=== PATIENT | male | born 1975 | race African-American/Black ===

== ENCOUNTER 2017-08-03 17:37 | Inpatient (IN) | payer SELFPAY ==
[2017-08-03 18:11] LABS: #Eosinphils 0.2 thou/uL (0.0-0.7); #Lymphocytes 1.7 thou/uL (1.20-3.40); #Monocytes 0.3 thou/uL (0.11-0.59); #Neutrophils 2.2 thou/uL (1.40-6.50); %Basophils 0.7 % (0.0-1.0); %Eosinophils 4.3 % (0.0-10.0); %Lymphocytes 38.4 % (21.0-51.0); %Monocytes 7.3 % (0.0-10.0); %Neutrophils 49.3 % (42.0-75.0); Hemoglobin 14.6 g/dL (14.0-18.0); Mean Corpuscular HGB CONC 33.6 g/dL (32.0-36.0); Mean Corpuscular Hemoglobin 30.8 pg (27.0-31.0); Mean Corpuscular Volume 91.6 fl (80.0-94.0); Mean Platelet Volume 7.3 fL (7.4-10.4); Platelet Count 259 thou/uL (130-400); RBC Distribution Width 12.7 % (11.5-14.5); Red Blood Cell (RBC) Count 4.73 mill/uL (4.70-6.10); White Blood Cell (WBC) Count 4.4 thou/uL (4.8-10.8)
[2017-08-03 18:18] LABS: PTT 28.4 SEC (22.9-36.1); Prothrombin Time 13.5 SEC (12.0-14.7)
[2017-08-03 18:38] LABS: Anion Gap 16 mmol/L (10-20); BUN (Urea Nitrogen) 16 mg/dL (8.9-20.6); CK (CPK) 73 U/L (30-200); Calc. Creatinine Clearance 0 mL/min (70-130); Calcium 10.1 mg/dL (7.8-10.44); Carbon Dioxide 24 mmol/L (22-29); Chloride 106 mmol/L (98-107); Estimated GFR-MDRD 70; Glucose 89 mg/dL (70-105); Potassium 4.6 mmol/L (3.5-5.1); Sodium 141 mmol/L (136-145)
--- NOTE | 2017-08-03 20:14 | CT ---
CT OF BRAIN PERFORMED WITHOUT CONTRAST ENHANCEMENT: 08/03/17 HISTORY: Slurred speech, difficulty swallowing. COMPARISON: 08/01/17 study. The ventricular and cisternal system shows some mild prominence for age. Once again, there is an area of what appears to be dystrophic calcification in the left external capsule region and encephalomala óscar plant changer the frontal lobe, these findings appear to be stable. No mass effect. Chronic white m atter changes are seen. Old lacunar infarcts are noted. IMPRESSION: Stable exam. Left sided frontal craniotomy change with encephalomalacia change of the left frontal lo be and some foci of dystrophic calcification over the frontal convexity and in the left basal ganglia external capsule region. POS: [facility]
[2017-08-03] MEDS ORDERED: Ondansetron HCl/PF 4 MG/2 ML Vial IVP PRN ×2 (21:22→23:10)
[2017-08-03] MEDS ORDERED: Ondansetron ODT 4 MG TAB SL PRN (21:22)
[2017-08-03] MEDS ORDERED: Sodium Chloride 0.9% 1,000 ML IV SCH (21:30)
[2017-08-03] MEDS ORDERED: hydrALAZINE 20 MG/ML VIAL SLOW IVP PRN (23:03)
[2017-08-03] MEDS ORDERED: Ondansetron ODT 4 MG TAB PO PRN (23:10)
[2017-08-03] MEDS ORDERED: Acetaminophen 325 MG TAB PO PRN (23:10)
[2017-08-03] MEDS ORDERED: Lorazepam 2 MG/ML VIAL SLOW IVP PRN (23:10)
[2017-08-03] MEDS ORDERED: Senokot 8.6 MG TAB PO PRN (23:10)
[2017-08-03] MEDS ORDERED: Acetaminophen 650 MG Suppository PR PRN (23:10)
--- NOTE | 2017-08-03 23:23 | HP ---
DATE OF ADMISSION: 08/03/2017 PRIMARY CARE PHYSICIAN: [facility]. PRIMARY NEUROLOGIST: At [facility]. CHIEF COMPLAINT: Stroke-like symptoms. HISTORY OF PRESENT ILLNESS: The patient is a 42-year-old -Italian male with seizure disorder and brain tumor, status post surgery, presented to the emergency room with right-sided weakness melanie g with swallowing difficulty that has been worsening over the past few days. It got worse since yest erday. He has been dragging his right foot. No double vision, blurring of vision, facial symmetry, weakness, numbness on the left side reported. He was unable to tolerate oral medications since yeste rday. He missed his Dilantin dose since yesterday. No fever, chills, chest pain, or palpitations re ported. PAST MEDICAL HISTORY: Benign brain tumor that was removed in 1994, treated with chemotherapy and rad iation. PAST SURGICAL HISTORY: Brain tumor excision in 1994. ALLERGIES: The patient is allergic to IODINE. CURRENT HOME MEDICATIONS: Dilantin 100 mg 3 times a day, amlodipine 5 mg daily. SOCIAL HISTORY: The patient currently lives at home with his family. No smoking, alcohol or drug us e. FAMILY HISTORY: Negative for strokes or seizures. REVIEW OF SYSTEMS: The following complete review of systems was negative, unless otherwise mentioned in the HPI or below: Constitutional: Weight loss or gain, ability to conduct usual activities. Skin: Rash, itching. Eyes: Double vision, pain. ENT/Mouth: Nose bleeding, neck stiffness, pain, tenderness. Cardiovascular: Palpitations, dyspnea on exertion, orthopnea. Respiratory: Shortness of breath, wheezing, cough, hemoptysis, fever or night sweats. Gastrointestinal: Poor appetite, abdominal pain, heartburn, nausea, vomiting, constipation, or diarr hea. Genitourinary: Urgency, frequency, dysuria, nocturia. Musculoskeletal: Pain, swelling. Neurologic/Psychiatric: Anxiety, depression. Allergy/Immunologic: Skin rash, bleeding tendency. PHYSICAL EXAMINATION: VITAL SIGNS: In the emergency room showed temperature 98.3, respirations 16, pulse 70, blood pressur e 145/102 with O2 saturation 96% on room air. GENERAL: A 42-year-old male, in no apparent distress. HEENT: Head: Atraumatic, normocephalic. Sclerae are anicteric. Moist mucous membrane, No oral le rafaela. NECK: Supple, no JVD appreciated. No carotid bruit. LUNGS: Clear to auscultation bilaterally. HEART: S1, S2 present. Regular rate and rhythm. No rubs, gallops or murmurs appreciated. ABDOMEN: Soft and nontender. Bowel sounds present. EXTREMITIES: No edema or calf tenderness. NEUROLOGIC: Cranial nerves II-XII were normal on examination. 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 Pupils were 2-3 mm with slow response to light. Power was 5/5 on th e left side. Right side power was 3-4/5. The weakness was more pronounced in the right leg. Sensat ion to touch was diminished. Gait was not assessed due to weakness. Reflexes were equivocal. PSYCHIATRY: The patient is alert, awake, and oriented x3. SKIN: Warm and dry. LYMPH NODES: No palpable lymph nodes in the neck. PERIPHERAL VASCULAR: Radial pulses palpable bilaterally. MUSCULOSKELETAL: No joint swelling or tenderness. LABORATORY FINDINGS: WBC 4.4, hemoglobin 14.6, creatinine 1.34 with BUN 16. Dilantin level 1.9. CT scan of the brain by my review was negative for acute CVA. It showed changes from left-sided fron veronika craniotomy. Chest x-ray by my review from 2 days ago was negative for infiltrate. IMPRESSION AND PLAN: 1. Right-sided weakness with swallowing difficulty in the setting of speech that got worse over the last 2 days. Possibilities include acute cerebrovascular accident, progression of the brain tumor or seizures. The patient will be monitored in the stroke unit. We will give him 1000 mg of Dilantin d ue to subtherapeutic Dilantin level. The patient is unable to tolerate oral medications at this time . We will continue Dilantin maintenance at 100 mg t.i.d. We will also start him on aspirin. We tan l get MRI with and without contrast in the morning. Echocardiogram will be done. Stroke team will b e consulted. Maintenance IV fluids will be started. 2. Seizure disorder. Plan as discussed above. 3. Obesity with a body mass index of 30.1. Lifestyle modification emphasized. 4. Chronic kidney disease, stage 2. 5. Subtherapeutic Dilantin level. Plan as discussed above. 6. Hypertension. His blood pressure is uncontrolled at this time, probably due to lack of taking hi s antihypertensives. We will start him on amlodipine and add p.r.n. antihypertensives. Plan of care was discussed with the patient and the family in detail, they stated understanding.
[2017-08-03] MEDS ORDERED: Aspirin 81 mg Enteric Coated Tablet PO SCH (23:30)
[2017-08-03] MEDS: Sodium Chloride 0.9% 1,000 ML IV SCH (23:41)
[2017-08-04 05:56] LABS: Cardiac Risk 4.1 (Less than 4.5)
[2017-08-04] MEDS: Docusate 100 MG CAP PO SCH ×2 (08:45→19:41)
[2017-08-04] MEDS: Amlodipine 10 MG TAB PO SCH (08:46)
[2017-08-04] MEDS ORDERED: Aspirin 81 mg Enteric Coated Tablet PO SCH (09:00)
--- NOTE | 2017-08-04 10:20 | MRI ---
BRAIN MRI WITH AND WITHOUT CONTRAST: COMPARISON: Reference made to recent head CT from 08/03/2017. FINDINGS: There is a prominent region of multilobular, cystic encephalomalacia of the high left frontal lobe. This results in ex vacuo dilatation of the ventricular system. Additional multifocal gliosis is seen within each cerebral hemisphere, as well as superimposed areas of cavitary lacunar infarctions. The re is inherent T1 hyperintense signal of the left basal ganglia, which correlates to calcium and demo nstrates associated blooming artifact. There is a small focus of restricted diffusion of the right dong radiata, linear in orientation, wh ich is consistent with a small recent infarction. There is prominent paranasal sinus mucosal thicken ing. The skull base flow voids are maintained. 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 POS: [facility]
--- NOTE | 2017-08-04 13:11 | PDOC.PN ---
- Subjective Encounter Start Date: 08/04/17 Encounter Start Time: 08:40 -: old records requested/rev Pt seen and examined, chart reviewed in its entirety. This is my first visit with this aptient. admitted to RUE/RLE weakness, slurred speech. Still present, no headach, no f/c , no n/V/D/c. failed BS swallow eval pending PT/OT/ST eval. ASA, statin ordered. MRI just complete, recent infarct to left dong radiata in distribution consistent with symptoms neuro eval pending no sz activity. all systems reviewed and neg x as above - Objective Resuscitation Status: Resuscitation Status FULL:Full Resuscitation MAR Reviewed: Yes Vital Signs & Weight: Vital Signs (12 hours) Temp Pulse Pulse Pulse Resp BP BP 08/04/17 11:41 98.3 F 80 16 08/04/17 08:46 74 08/04/17 08:00 97.6 F 74 16 08/04/17 07:34 97.6 F 74 16 08/04/17 07:16 75 65 141/100 H 140/97 H 08/04/17 04:35 98.0 F 77 16 BP Pulse Ox 08/04/17 11:41 145/109 H 94 L 08/04/17 08:46 08/04/17 08:00 97 08/04/17 07:34 141/100 H 97 08/04/17 07:16 08/04/17 04:35 143/101 H 97 Weight Admit Weight 203 lb 11.2 oz Weight 203 lb 11.2 oz I&O: 08/03/17 08/04/17 08/05/17 06:59 06:59 06:59 Intake Total 740 Output Total 250 Balance 490 Result Diagrams: 08/03/17 17:58 08/03/17 17:58 Radiology Reviewed by me: Yes EKG Reviewed by me: Yes Phys Exam - Physical Examination Constitutional: NAD HEENT: PERRLA, moist MMs, sclera anicteric, oral pharynx no lesions Neck: no nodes, no JVD, supple, full ROM Respiratory: no wheezing, no rales, no rhonchi, clear to auscultation bilateral Cardiovascular: RRR, no significant murmur, no rub Gastrointestinal: soft, non-tender, no distention, positive bowel sounds Musculoskeletal: pulses present, edema present 3/5 LUE/LLE strength, 2/5 RUE/RLE. CN intact grossly Lymphatic: no nodes Psychiatric: normal affect, A&O x 3 Skin: no rash, normal turgor, cap refill <2 seconds Dx/Plan (1) Acute ischemic stroke Code(s): I63.9 - CEREBRAL INFARCTION, UNSPECIFIED Status: Acute Comment: left internal capsule, by MRI. ASA. Statin. rehab screen (2) Seizure disorder Code(s): G40.909 - EPILEPSY, UNSP, NOT INTRACTABLE, WITHOUT STATUS EPILEPTICUS Status: Chronic Comment: on dilantin, level low, loaded IV, po if ST clears (3) History of brain tumor Code(s): Z87.898 - PERSONAL HISTORY OF OTHER SPECIFIED CONDITIONS Status: Chronic (4) CKD (chronic kidney disease), stage II Code(s): N18.2 - CHRONIC KIDNEY DISEASE, STAGE 2 (MILD) Status: Chronic (5) Hypertension Code(s): I10 - ESSENTIAL (PRIMARY) HYPERTENSION Status: Chronic Qualifiers: Hypertension type: essential hypertension Qualified Code(s): I10 - Essential (primary) hypertension - Plan cont current plan of care, 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
[2017-08-04] MEDS: Sodium Chloride 0.9% 1,000 ML IV SCH (19:40)
[2017-08-04] MEDS: Atorvastatin Calcium 20 MG TAB PO SCH (20:39)
[2017-08-04] MEDS: Enoxaparin Sodium 40 MG/0.4 ML SYRINGE SC SCH (20:43)
[2017-08-04] MEDS ORDERED: Atorvastatin Calcium 10 MG TAB PO SCH (21:00)
--- NOTE | 2017-08-05 01:44 | CON ---
DATE OF CONSULTATION: 08/05/2017 REFERRING PHYSICIAN: Dr. Eliot Kelsey. REASON FOR CONSULTATION: Dysarthria, right-sided weakness. HISTORY OF PRESENT ILLNESS: Mr. Rahman is a pleasant 42-year-old -Sammarinese male who has been consulted for evaluation of dysarthria, dysphagia, and right-sided weakness. History is obtained fro m who was present at bedside. reports that patient has a history of "noncancerous" brain t umor, which was resected in 1994. He had developed right-sided weakness and vision difficulties from that time, he has also had difficulty with most of his speech due to that. He also had developed se izures secondary to his brain tumor and has been on Dilantin. His seizures were very poorly controll ed and they were happening at least 5-7 times per month. Recently, he had seen Dr. Romano at [facility] neurologist who had the changes Dilantin from 100 mg 3 times a day to 300 mg in the mornin g; however, over the past 3-4 days, he has not been able to take his medication. reports that o n Wednesday, he developed sudden onset of slurred speech and difficulty with swallowing. They had gone to outside emergency room on Wednesday evening and was told that this was because of his seizure and was discharged to home on Wednesday afternoon. He had gone again as he was continuing to have slurred spee ch and difficulty with swallowing and again they were told that this was because of his seizures and discharged home. Yesterday, they decided to present to the [place] [facility] as his symptoms were not improving. She also notes that he has been having increasing weakness in his right side; h bryson, she notes that this symptoms have been very increasingly getting worse over the past one year and he has been told that he has mini strokes as the cause for his right-sided weakness. PAST MEDICAL HISTORY: Significant for brain tumor "noncancerous" treated with resection and chemo an d radiation therapy. PAST SURGICAL HISTORY: Significant for brain tumor excision in 1994. CURRENT MEDICATIONS: Include Dilantin 300 mg in the morning once day, amlodipine 5 mg daily. ALLERGIES: Include IODINE. SOCIAL HISTORY: He does not smoke, drink alcohol, or use illicit drugs. FAMILY HISTORY: Noncontributory. REVIEW OF SYSTEMS: As mentioned, which was negative. PHYSICAL EXAMINATION: VITAL SIGNS: Blood pressure 142/104, pulse of 76, temperature 98.2, respirations of 16, O2 sats 98% on room air. GENERAL: Well-developed, well-nourished -Sammarinese male in no apparent distress. RESPIRATORY: Clear to auscultation bilaterally. CARDIOVASCULAR: Regular rate and rhythm. NEUROLOGIC: Mental status: Patient is awake, alert, oriented x3. Speech and language: Dysarthric speech. Cranial nerves: Pupils are 3 mm and reactive. Visual wong are intact on the left side. He is unable to perform finger counting on the right side. Face appears symmetric. Tongue and uvula are midline. Motor exam showed increased tone of right upper and right lower extremity. His streng th in the right upper and right lower extremity is 3/5, strength in the left upper extremity is 4+/5 with a pronator drift on the left upper extremity. Strength in the left lower extremity is 4+/5. Se nsory: Sensation is intact. Deep tendon reflexes, brisk reflexes in both upper and lower extremitie s. Babinski: Plantar responses flexion bilaterally. Coordination intact to [id number] and finger tapping bilaterally. LABORATORY DATA: Reviewed, which included CBC, BMP, lipid profile, and Dilantin level which is signi ficant for WBC of 4.4, creatinine 1.34, total cholesterol of 224, LDL of 148, HDL of 55, triglyceride s of 103, Dilantin of 1.9, otherwise unremarkable. IMAGING STUDIES: MRI brain without contrast was reviewed, which showed acute right dong radiata is chemic infarct. There is also multilobular cystic encephalomalacia in the left frontal lobe as well as a prior cavitary lacunar infarctions in both sides. IMPRESSION: 1. Acute ischemic infarct involving the right dong radiata. 2. Malignant hypertension. 3. Prior brain tumor resection. Mr. Rahman is a pleasant 42-year-old -Sammarinese male presented with the worsening dysarthria an d dysphagia. He is found to have acute right dong radiata ischemic infarct. This is likely second eugenio to poorly controlled blood pressure and cholesterol. At this time, I will recommend obtaining ec hocardiogram as well as echocardiogram as well as MR angiogram of the head and neck. I will recommen d starting him on aspirin 325 mg daily for secondary stroke prevention. I will recommend consulting PT, OT, speech therapy. Once the workup is completed, he is okay to be [facility] Thank you for your consultation.
[2017-08-05 04:31] LABS: #Eosinphils 0.2 thou/uL (0.0-0.7); #Lymphocytes 1.4 thou/uL (1.20-3.40); #Monocytes 0.3 thou/uL (0.11-0.59); #Neutrophils 1.5 thou/uL (1.40-6.50); %Basophils 0.8 % (0.0-1.0); %Lymphocytes 40.7 % (21.0-51.0); %Monocytes 9.8 % (0.0-10.0); %Neutrophils 43.7 % (42.0-75.0); Hemoglobin 12.7 g/dL (14.0-18.0); Mean Corpuscular HGB CONC 33.9 g/dL (32.0-36.0); Mean Corpuscular Volume 91.6 fl (80.0-94.0); Mean Platelet Volume 7.2 fL (7.4-10.4); Platelet Count 212 thou/uL (130-400); RBC Distribution Width 12.4 % (11.5-14.5); Red Blood Cell (RBC) Count 4.09 mill/uL (4.70-6.10); White Blood Cell (WBC) Count 3.4 thou/uL (4.8-10.8)
[2017-08-05 05:04] LABS: Anion Gap 7 mmol/L (10-20); BUN (Urea Nitrogen) 12 mg/dL (8.9-20.6); Calc. Creatinine Clearance 117 mL/min (70-130); Carbon Dioxide 27 mmol/L (22-29); Chloride 107 mmol/L (98-107); Estimated GFR-MDRD Greater than 90; Glucose 95 mg/dL (70-105); Magnesium 2.3 mg/dL (1.6-2.6); Potassium 3.7 mmol/L (3.5-5.1); Sodium 137 mmol/L (136-145)
[2017-08-05] MEDS: Amlodipine 10 MG TAB PO SCH (10:30)
[2017-08-05] MEDS: Aspirin 325 MG TAB PO SCH (10:30)
[2017-08-05] MEDS: Docusate 100 MG CAP PO SCH (11:43)
--- NOTE | 2017-08-05 14:46 | PDOC.PN ---
- Subjective Encounter Start Date: 08/05/17 Encounter Start Time: 08:30 Pt seen, at bedside and updated. pt uninsured, so plan is to go home with [facility] on james if possible. Case Management working on options. Seen by neuro, confirmed acute CVA. recommended statin, full aspirin daily, MRA and echo. MRA and echo, ASA 325 ordered, statin already started yedsterday No significant cange form yesterday. Speech recommended St plus soft mech diet and nectar thick liquids. Pt deneis F/C, no N/V/D/C, no new deficits All systems reviewed and neg except as above - Objective Resuscitation Status: Resuscitation Status FULL:Full Resuscitation MAR Reviewed: Yes Vital Signs & Weight: Vital Signs (12 hours) Temp Pulse Pulse Pulse Resp BP BP 08/05/17 13:15 70 65 146/111 H 130/84 08/05/17 11:41 97.9 F 69 16 08/05/17 10:30 80 08/05/17 08:00 98.3 F 80 16 08/05/17 07:38 98.3 F 80 16 08/05/17 04:00 98.4 F 77 16 BP Pulse Ox 08/05/17 13:15 08/05/17 11:41 145/107 H 97 08/05/17 10:30 08/05/17 08:00 97 08/05/17 07:38 139/92 H 97 08/05/17 04:00 130/97 H 94 L Weight Admit Weight 203 lb 11.2 oz Weight 203 lb 11.2 oz I&O: 08/04/17 08/05/17 08/06/17 06:59 06:59 06:59 Intake Total 740 1260 Output Total 250 Balance 490 1260 Result Diagrams: 08/05/17 04:17 08/05/17 04:17 Radiology Reviewed by me: Yes EKG Reviewed by me: Yes Phys Exam - Physical Examination Constitutional: NAD HEENT: PERRLA, moist MMs, sclera anicteric, oral pharynx no lesions Neck: no nodes, no JVD, supple, full ROM Respiratory: no wheezing, no rales, no rhonchi, clear to auscultation bilateral Cardiovascular: RRR, no significant murmur, no rub Gastrointestinal: soft, non-tender, no distention, positive bowel sounds Musculoskeletal: no edema, pulses present R>L weakness, still dysarthric, no facial droop. Lymphatic: no nodes Psychiatric: normal affect, A&O x 3 Skin: no rash, normal turgor, cap refill <2 seconds Dx/Plan (1) Acute ischemic stroke Code(s): I63.9 - CEREBRAL INFARCTION, UNSPECIFIED Status: Acute Comment: right internal capsule, by MRI. ASA. Statin. home with C when arranged (2) Seizure disorder Code(s): G40.909 - EPILEPSY, UNSP, NOT INTRACTABLE, WITHOUT STATUS EPILEPTICUS Status: Chronic Comment: on dilantin, level low, loaded IV, po, AM repeat level (3) History of brain tumor Code(s): Z87.898 - PERSONAL HISTORY OF OTHER SPECIFIED CONDITIONS Status: Chronic (4) CKD (chronic kidney disease), stage II Code(s): N18.2 - CHRONIC KIDNEY DISEASE, STAGE 2 (MILD) Status: Chronic (5) Hypertension Code(s): I10 - ESSENTIAL (PRIMARY) HYPERTENSION Status: Chronic Qualifiers: Hypertension type: essential hypertension Qualified Code(s): I10 - Essential (primary) hypertension - Plan cont current plan of care, plan discussed w/ family, 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
--- NOTE | 2017-08-05 16:03 | MRI ---
MRA OF THE BRAIN WITHOUT CONTRAST: COMPARISON: 08/04/17. HISTORY: Acute CVA. TECHNIQUE: An MRA of the head was performed using 3D [id number] images. Three-D rotational reformats were p erformed. The bilateral intracranial internal carotid arteries are normal in caliber. These branch into normal -appearing anterior and middle cerebral arteries. There is no evidence of focal stenosis, occlusion, or aneurysmal dilatation in the anterior circulation. Both vertebral arteries form a normal-appearing basilar artery. Posterior cerebral arteries and cere bellar arteries are patent. There is no evidence of focal stenosis, occlusion, or aneurysmal dilatat ion in the posterior circulation. IMPRESSION: No significant intracranial mass or abnormality. POS: [facility]
--- NOTE | 2017-08-05 16:05 | MRI ---
MRA NECK NONCOTNRAST: HISTORY: CVA. Difficulty swallowing. FINDINGS: Motion artifact limits detail on some sequences. Good arterial flow is demonstrated within each booth tid artery an each vertebral artery along the course of the neck. Upper thorax is incompletely inclu ded. Each internal carotid artery origin is patent. No significant narrowing. IMPRESSION: No evidence of arterial stenosis. POS: [facility]
[2017-08-05] MEDS: Atorvastatin Calcium 20 MG TAB PO SCH (21:56)
[2017-08-05] MEDS: Enoxaparin Sodium 40 MG/0.4 ML SYRINGE SC SCH (21:57)
[2017-08-06 08:00] VITALS: TEMP 97.9
[2017-08-06] MEDS: Docusate 100 MG CAP PO SCH ×2 (08:48→09:04)
[2017-08-06] MEDS: Amlodipine 10 MG TAB PO SCH (09:03)
[2017-08-06] MEDS: Aspirin 325 MG TAB PO SCH (09:03)
[2017-08-06 13:21] VITALS: BP 158/118
--- NOTE | 2017-08-06 17:36 | DIS ---
DATE OF ADMISSION: 08/03/2017 DATE OF DISCHARGE: 08/06/2017 PRIMARY CARE PHYSICIAN: Maximus Araiza. DISCHARGE DIAGNOSES: 1. Acute ischemic right internal capsule stroke. 2. Hyperlipidemia. 3. History of seizure disorder. 4. History of brain tumor, status post resection. 5. Dysarthria. 6. Dysphagia. CONSULTATIONS: 1. Neurology, Dr. Qian Lira. 2. PT, OT and ST. PROCEDURES: 1. A 2D echocardiogram 08/05/2017 showed an EF of 60-65% with some LVH. Normal RV size and function , trace MR and mild TR and PI. 2. Brain MRA on 08/05/2017. No significant intracranial mass or abnormality. 3. Head and neck on MRI/MRA showed no evidence of arterial stenosis. 4. Brain MRI on 08/04/2017 that showed small recent infarction involving the right dong radiata kaba perimposed with extensive chronic ischemic disease. HOSPITAL COURSE: Mr. Judge is a 42-year-old male with history of brain tumor, stat us post resection and resultant seizure disorder who presents to the emergency department on day of a dmission with increased right-sided weakness and stroke-like symptoms. Workup in the ER including CT scan was largely unremarkable, but the exam did show new right greater than left weakness, dysarthria and trouble swallowing. A Dilantin level was subtherapeutic. He was subsequently admitted to the stroke unit for workup. HOSPITAL COURSE: The patient was seen and examined by Dr. Eliot Kelsey and placed in inpatient status . Brain MRI was ordered. Stroke team was activated. Neurology was consulted. MRI returned the next day with acute right dong radiata stroke and Neurology recommended full dose aspirin and antihyperlipidemic agents. His fasting lipid profile showed elevated total cholesterol, but is otherwise fairly normal. PT, OT and ST did evaluate the patient. He was recommended to have a nectar thick diet and a soft mechanical diet. He worked with PT and OT from 08/04/2017 to 08/06/19 18. Due to lack of insurance, arrangement was made for him to follow up with [facility] and to h ave 2-3 visits with home health care for teaching of rehabilitation exercises. Today, the patient's arrangements were made and he was stable for discharge with outpatient followup. Physical exam, the patient was seen and examined on the day of discharge. Discharge plan and dispo sition were discussed face to face with the patient and the at the bedside including plan for re habilitation with PT, ST and OT. DISCHARGE MEDICATIONS: 1. Amlodipine 5 mg daily. 2. Aspirin 325 mg daily. New prescription sent. 3. Atorvastatin 20 mg p.o. at bedtime. Prescription sent to [facility] for case management to arrange f illing and no charge for him. 4. Dilantin 100 mg p.o. t.i.d or 300 mg daily per patient choice. DISCHARGE CONDITION: Stable. DISPOSITION: Discharged to home with a temporary home health care for teaching of rehabilitation [facility]. DISCHARGE ACTIVITY: As tolerated. DISCHARGE DIET: Heart healthy recommended with a soft mechanical texture and nectar thick liquids. FOLLOWUP APPOINTMENTS: Primary care physician, his establish care either Wednesday at 11:00 a.m. or Wed after 2:[address] [facility]. Lira in 2-3 weeks. Regular neurologist at [place] [facility] [place] as scheduled.
== END 2017-08-06 13:49 | disposition home health service (06) | DRG 65 ==
LOC: ERS 17:37 → 2SE 20:53
PROVIDERS: ADMIT Emergency Medicine; ATTEND Emergency Medicine
DX: I63.9 Cerebral infarction, unspecified (principal); G81.91 Hemiplegia, unspecified affecting right dominant side; G40.909 Epilepsy, unspecified, not intractable, without status epilepticus; R13.10 Dysphagia, unspecified; N18.2 Chronic kidney disease, stage 2 (mild); E78.5 Hyperlipidemia, unspecified; I12.9 Hypertensive chronic kidney disease with stage 1 through stage 4 chronic kidney disease, or unspecified chronic kidney disease
CPT/HCPCS: 36415; 70450; 70544; 70547; 70553; 80048; 80061; 80185; 82550; 83735; 85025; 85610; 85730; 93005; 93306; G8978-GP-CL; G8979-GP-CJ; G8987-GO-CJ; G8988-GO-CH; G8996-GN-CJ; G8997-GN-CJ; J1650; J7050; Q2009

== ENCOUNTER 2017-08-11 18:52 | Emergency (ER) | payer SELFPAY ==
--- NOTE | 2017-08-11 19:48 | CT ---
CT BRAIN WITHOUT CONTRAST: 08/11/17 HISTORY: Altered mental status. COMPARISON: CT brain 08/03/17. FINDINGS: Calcific density left basal ganglia is unchanged. Gliosis and cystic encephalomalacia of the left fro ntal lobe is unchanged. Old right caudate head infarction. No acute hemorrhage. No new large volume t erritorial infarcts appreciated. Prior craniotomy changes. IMPRESSION: Unchanged exam without acute intracranial abnormality. POS: [facility]
[2017-08-11 20:31] LABS: #Eosinphils 0.2 thou/uL (0.0-0.7); #Lymphocytes 1.4 thou/uL (1.20-3.40); #Monocytes 0.3 thou/uL (0.11-0.59); #Neutrophils 2.1 thou/uL (1.40-6.50); %Basophils 0.7 % (0.0-1.0); %Eosinophils 4.3 % (0.0-10.0); %Lymphocytes 35.5 % (21.0-51.0); %Monocytes 7.1 % (0.0-10.0); %Neutrophils 52.4 % (42.0-75.0); Hemoglobin 12.9 g/dL (14.0-18.0); Mean Corpuscular HGB CONC 34.6 g/dL (32.0-36.0); Mean Corpuscular Hemoglobin 30.9 pg (27.0-31.0); Mean Corpuscular Volume 89.4 fl (80.0-94.0); Mean Platelet Volume 6.8 fL (7.4-10.4); Platelet Count 237 thou/uL (130-400); RBC Distribution Width 12.1 % (11.5-14.5); Red Blood Cell (RBC) Count 4.16 mill/uL (4.70-6.10)
[2017-08-11 20:51] LABS: ALT (SGPT) 114 U/L (8-55); AST (SGOT) 51 U/L (5-34); Albumin 4.2 g/dL (3.5-5.0); Alkaline Phosphatase 96 U/L (40-150); Anion Gap 12 mmol/L (10-20); BUN (Urea Nitrogen) 14 mg/dL (8.9-20.6); Bilirubin, Total 0.2 mg/dL (0.2-1.2); Calc. Creatinine Clearance 0 mL/min (70-130); Calcium 9.3 mg/dL (7.8-10.44); Carbon Dioxide 24 mmol/L (22-29); Chloride 104 mmol/L (98-107); Dilantin 3.7 ug/mL (10.0-20.0); Estimated GFR-MDRD 78; Globulin 3.6 g/dL (2.4-3.5); Glucose 103 mg/dL (70-105); Potassium 3.8 mmol/L (3.5-5.1); Protein, Total 7.8 g/dL (6.0-8.3); Sodium 136 mmol/L (136-145)
--- NOTE | 2017-08-14 14:47 | EKG ---
Test Reason : Blood Pressure : / mmHG Vent. Rate : 085 BPM Atrial Rate : 085 BPM P-R Int : 170 ms QRS Dur : 100 ms QT Int : 382 ms P-R-T Axes : 040 -11 -05 degrees QTc Int : 454 ms Normal sinus rhythm Possible Left atrial enlargement Left ventricular hypertrophy Cannot rule out Septal infarct , age undetermined Abnormal ECG Confirmed by FRANCESCA BA M.D. ([id number]), editor farm journal SIM MARRUFO ([id number]) on 08/14/2017 2:46:49 PM Referred By: Confirmed By:FRANCESCA BA M.D.
== END 2017-08-11 21:50 | disposition home or self-care (01) ==
LOC: ERS 18:52
DX: R56.9 Unspecified convulsions (principal); I10 Essential (primary) hypertension; Z79.899 Other long term (current) drug therapy; Z79.82 Long term (current) use of aspirin
CPT/HCPCS: 36415; 36416; 70450; 80053; 80185; 85025; 93005

== ENCOUNTER 2017-08-24 16:35 | Observation (INO) | payer OTHER, SELFPAY ==
[2017-08-24 17:17] LABS: #Eosinphils 0.2 thou/uL (0.0-0.7); #Lymphocytes 1.3 thou/uL (1.20-3.40); #Monocytes 0.3 thou/uL (0.11-0.59); #Neutrophils 1.3 thou/uL (1.40-6.50); %Basophils 0.8 % (0.0-1.0); %Lymphocytes 42.4 % (21.0-51.0); %Monocytes 8.2 % (0.0-10.0); %Neutrophils 42.6 % (42.0-75.0); Hemoglobin 11.7 g/dL (14.0-18.0); Mean Corpuscular HGB CONC 34.2 g/dL (32.0-36.0); Mean Corpuscular Hemoglobin 30.6 pg (27.0-31.0); Mean Corpuscular Volume 89.4 fl (80.0-94.0); Mean Platelet Volume 6.5 fL (7.4-10.4); Platelet Count 204 thou/uL (130-400); RBC Distribution Width 11.7 % (11.5-14.5); Red Blood Cell (RBC) Count 3.83 mill/uL (4.70-6.10); White Blood Cell (WBC) Count 3.2 thou/uL (4.8-10.8)
[2017-08-24 17:38] LABS: ALT (SGPT) 44 U/L (8-55); AST (SGOT) 19 U/L (5-34); Albumin 4.1 g/dL (3.5-5.0); Alkaline Phosphatase 112 U/L (40-150); Anion Gap 10 mmol/L (10-20); BUN (Urea Nitrogen) 11 mg/dL (8.9-20.6); Bilirubin, Total 0.2 mg/dL (0.2-1.2); Calc. Creatinine Clearance 0 mL/min (70-130); Calcium 9.3 mg/dL (7.8-10.44); Carbon Dioxide 28 mmol/L (22-29); Chloride 105 mmol/L (98-107); Estimated GFR-MDRD 69; Globulin 3.4 g/dL (2.4-3.5); Glucose 90 mg/dL (70-105); Potassium 3.7 mmol/L (3.5-5.1); Protein, Total 7.5 g/dL (6.0-8.3); Sodium 139 mmol/L (136-145)
[2017-08-24 17:45] LABS: CKMB 0.1 ng/mL (0-6.6); Troponin I Less than 0.010 ng/mL (< 0.028)
--- NOTE | 2017-08-24 19:43 | CT ---
CT OF THE BRAIN WITHOUT CONTRAST 08/24/17 COMPARISON: 08/11/17 HISTORY: Unsteady gait. History of seizure-like activity. Patient had history of stroke in July and slurred spe ech. TECHNIQUE: Multiple contiguous axial images were obtained in a CT of the brain without contrast. FINDINGS: There are scattered hypodensities in the subcortical and periventricular white matter likely secondar y to small vessel ischemic disease. There are stable calcifications in the left basal ganglia. Enceph alomalacia is seen in the left frontal lobe. There is no evidence of hydrocephalus, intracranial hemo rrhage, or extra-axial fluid collection. The visualized paranasal sinuses and mastoid air cells are well aerated. There are postsurgical pedro es in the left frontal calvarium. IMPRESSION: No evidence of acute intracranial abnormality. POS: [facility]
[2017-08-24 22:56] VITALS: BMI 31.1
[2017-08-25] MEDS ORDERED: Acetaminophen 325 MG TAB PO PRN (01:03)
[2017-08-25] MEDS ORDERED: Guaifenesin DM 100-10/5 ML UDCUP PO PRN (01:03)
[2017-08-25] MEDS ORDERED: Lorazepam 2 MG/ML VIAL SLOW IVP PRN (01:03)
--- NOTE | 2017-08-25 03:40 | HP ---
REASON FOR ADMISSION: TIA. HISTORY OF PRESENTING ILLNESS: Please note majority of this history is obtained by talking to patient's as the patient does not recall what happened to him. Per who is here at bedside, mentions that from last 2 days he has not been able to balance himself and he tries to slide off when he is sitting in a chair, either to the left or to the front. He has had some slurred speech yesterday evening. He also had some trouble swallowing and was pocketing food at home. He has home health with PT come home and they have been watching that his right side is still weak and he tries to drag his right side while ambulating. He occasionally uses walker, but mostly goes without it. Currently, he is moving all 4 extremities. No complaints of any specific weakness at present. No chest pain or palpitation. He is awake and is responding well to questions. PAST MEDICAL AND SURGICAL HISTORY: History of left frontal lobe mass removed in 02/1995, which was benign. Has had a lacunar infarct in the right dong radiata on 08/03/2017. Hypertension, dyslipidemia, and seizure disorder. CURRENT MEDICATIONS: Dilantin 200 mg twice daily, Norvasc 5 mg daily, aspirin 325 mg daily, atorvastatin 20 mg at bedtime. ALLERGIES: IODINE. PERSONAL HISTORY: Does not abuse alcohol or drugs. No history of smoking. FAMILY HISTORY: Mother in her 70s. She has had history of stroke and breast cancer. Code status is FULL. Power of litigation attorney associate is his . REVIEW OF SYSTEMS: The following complete review of systems was negative, unless otherwise mentioned in the HPI or below: Constitutional: Weight loss or gain, ability to conduct usual activities. Skin: Rash, itching. Eyes: Double vision, pain. ENT/Mouth: Nose bleeding, neck stiffness, pain, tenderness. Cardiovascular: Palpitations, dyspnea on exertion, orthopnea. Respiratory: Shortness of breath, wheezing, cough, hemoptysis, fever or night sweats. Gastrointestinal: Poor appetite, abdominal pain, heartburn, nausea, vomiting, constipation, or diarrhea. Genitourinary: Urgency, frequency, dysuria, nocturia. Musculoskeletal: Pain, swelling. Neurologic/Psychiatric: Anxiety, depression. Allergy/Immunologic: Skin rash, bleeding tendency. PHYSICAL EXAMINATION: GENERAL: The patient is a 42-year-old male, who is currently not in any acute distress. VITAL SIGNS: Blood pressure 114/70, pulse 78 per minute, respiratory rate 18 per minute, temperature 98.7 degrees Fahrenheit, saturating 94% on room air. NECK: Supple, no elevated JVD. HEENT: Eyes: Extraocular muscles intact. Pupils are reacting to light. Oral cavity, mucous membranes are moist. No exudates or congestion. CARDIOVASCULAR SYSTEM: S1, S2 heard. Regular rhythm. RESPIRATORY SYSTEM: Air entry 1+ bilateral. No rales or rhonchi. ABDOMEN: Soft, bowel sounds heard. No tenderness, rigidity or guarding. EXTREMITIES: No peripheral edema or calf tenderness. VASCULAR SYSTEM: Peripheral pulses 1+ bilateral, no ischemic ulcerations or gangrene. CENTRAL NERVOUS SYSTEM: Cranial nerves are grossly intact. Motor system strength: Right upper and lower extremity strength is 3-4/5, left upper and lower extremity is 5/5, reflexes are 2+ bilateral. Babinski is downgoing. Cranial nerves are grossly intact. Cerebellar signs could not be elicited. Gait is not tested. PSYCHIATRIC SYSTEM: The patient's mood is euthymic. No hallucinations or delusions. LABORATORY AND X-RAY FINDINGS: EKG done shows sinus rhythm at 60 beats per minute on telemetry monitoring. White count of 3.2, H&H 11 and 34, platelet count 204 with 42% neutrophils. Electrolytes stable. BUN 11, creatinine 1.3, glucose 90. Liver enzymes within normal limits. Albumin is 4.1. Phenytoin level is 9.8. Cardiac enzymes x1 is negative. CT brain done shows no acute intracranial abnormality. CLINICAL IMPRESSION AND PLAN: The patient will be under observation on the stroke unit to rule out transient ischemic attack. The patient has complicated neurologic history with prior mass removed in the left frontal lobe with encephalomalacia seen on the CAT scan. He has also had a recent lacunar infarct in the right dong radiata. His strength on the right side is around 3 -4/5. We will obtain MRI of the brain without contrast to better delineate the structures. Also, I am told Neurology consultation is not available on the , that is after the patient is being admitted to the stroke floor. In view of this, we will follow transient ischemic attack evidence based stroke protocol with a NIH q. shift and PT, OT, and speech evaluations. He will also continue on full dose aspirin, Norvasc, Lipitor, and recently increased dose of Dilantin as well. We will continue to closely monitor him on the stroke unit. The patient likely will need outpatient appointment with Dr. Qian Lira to be scheduled. Also, the patient has seen one time Dr. Romano in the past. So, he needs to see either one of them in the outpatient setting as neurologist is not available today. Code status was discussed with patient and and he is a FULL CODE. Please note I have seen and examined patient [facility]
[2017-08-25 06:07] LABS: #Eosinphils 0.2 thou/uL (0.0-0.7); #Lymphocytes 1.7 thou/uL (1.20-3.40); #Monocytes 0.4 thou/uL (0.11-0.59); #Neutrophils 1.4 thou/uL (1.40-6.50); %Basophils 0.4 % (0.0-1.0); %Eosinophils 4.7 % (0.0-10.0); %Lymphocytes 46.1 % (21.0-51.0); %Monocytes 10.7 % (0.0-10.0); %Neutrophils 38.1 % (42.0-75.0); Mean Corpuscular HGB CONC 34.2 g/dL (32.0-36.0); Mean Corpuscular Hemoglobin 30.5 pg (27.0-31.0); Mean Corpuscular Volume 89.2 fl (80.0-94.0); Mean Platelet Volume 6.8 fL (7.4-10.4); Platelet Count 212 thou/uL (130-400); RBC Distribution Width 11.6 % (11.5-14.5); Red Blood Cell (RBC) Count 3.94 mill/uL (4.70-6.10); White Blood Cell (WBC) Count 3.6 thou/uL (4.8-10.8)
[2017-08-25 06:16] LABS: Anion Gap 10 mmol/L (10-20); BUN (Urea Nitrogen) 10 mg/dL (8.9-20.6); Calc. Creatinine Clearance 111 mL/min (70-130); Calcium 9.4 mg/dL (7.8-10.44); Carbon Dioxide 29 mmol/L (22-29); Cardiac Risk 3.5 (Less than 4.5); Chloride 105 mmol/L (98-107); Cholesterol 133 mg/dl (< 200 Desired); Estimated GFR-MDRD 83; Glucose 83 mg/dL (70-105); HDL Cholesterol 38 mg/dL (>60 Neg Risk); LDL Cholesterol, Calculated 81 mg/dL; Potassium 3.8 mmol/L (3.5-5.1); Sodium 140 mmol/L (136-145); Triglycerides 70 mg/dL (Less than 150)
[2017-08-25] MEDS: Docusate 100 MG CAP PO SCH ×2 (08:51→08:54)
[2017-08-25] MEDS ORDERED: Amlodipine 5 MG TAB PO SCH (09:00)
[2017-08-25] MEDS ORDERED: Enoxaparin Sodium 40 MG/0.4 ML SYRINGE SC SCH (09:00)
[2017-08-25] MEDS ORDERED: Famotidine 20 MG TAB PO SCH (09:00)
[2017-08-25] MEDS ORDERED: Aspirin 325 mg Enteric Coated Tablet PO SCH (09:00)
--- NOTE | 2017-08-25 10:34 | MRI ---
MRI BRAIN WITHOUT CONTRAST: HISTORY: Unsteady gait. Seizure-like activity. Previous stroke. COMPARISON: None. CORRELATION: Head CT from 08/11/2017 and 08/24/2017. TECHNIQUE: A brain MRI is performed without intravenous Gadolinium administration. Multisequential, multiplanar imaging is performed. FINDINGS: There is hypointensity in the axial gradient echo sequence, corresponding to the areas of calcificati on noted on the recent CT. There are T2 and FLAIR hyperintensities, compatible with gliotic and mickey cic changes involving the left frontal lobe and the left deep leon matter structures. There are asso ciated T2 and FLAIR hyperintensities involving the right lentiform nucleus and the right caudate lobe , compatible with areas of hypoattenuation, suggesting changes from remote lacunar infarcts. There i s a small focus of T2 and FLAIR hyperintensity, which may represent a small periventricular lacunar i nfarction. Similar findings are noted in the left centrum semiovale. With the exception of the left frontal lobe, cortical leon white matter differentiation is preserved. There is ex vacuo dilatation of the frontal horn of the left lateral ventricle. Central arterial flow voids are maintained. Absent restricted diffusion. The calvarium has a normal marrow signal intensity. The midline brain parenchymal structures are unr emarkable. There is bilateral maxillary sinus mucosal disease. IMPRESSION: Chronic changes, as described above. No acute infarct. No restricted diffusion. POS: INOECNCIO
[2017-08-25 10:48] LABS: Amphetamine Not Detected (NotDetected); Barbiturates Screen Detected (NotDetected); Benzodiazepine Screen Not Detected (NotDetected); Cocaine Metabolite Screen Not Detected (NotDetected); Medtox Control Line Valid? VALID (VALID); Medtox Reader # READER 4; Methadone Not Detected (NotDetected); Methamphetamine Not Detected (NotDetected); Opiate Screen Not Detected (NotDetected); Oxycodone Screen Not Detected (NotDetected); Phencyclidine (PCP) Not Detected (NotDetected); THC/Cannabinoid Screen Not Detected (NotDetected); Tricyclic Screen Not Detected (NotDetected)
[2017-08-25 11:58] VITALS: TEMP 98.3
[2017-08-25 12:53] VITALS: BP 156/121
--- NOTE | 2017-08-25 19:38 | DIS ---
DATE OF ADMISSION: 08/24/2017 DATE OF DISCHARGE: 08/25/2017 DISCHARGE DIAGNOSES: 1. Unstable balance. 2. History of seizures. 3. Status post left frontal mass removal. 4. Hypertension. HOSPITAL COURSE: While the patient was in hospital, due to the decreased balance, patient was admitt ed to the Neuro unit. Imaging was done, which included an MRI. MRI did not show any acute infarct o r any abnormalities. After evaluating the patient this morning, I do not even believe the patient ev en had a TIA stroke. Patient states that he feels significantly better this morning without re quiring any intervention overnight. Due to the patient being in stable condition without any further intervention required at this time and the patient being at his baseline, I was comfortable discharg ing the patient home. The patient will follow up with Neurology as an outpatient as well as continue with home health as well as PT, OT outpatient. DISCHARGE CONDITION: Much improved from when he first came in. DISCHARGE ACTIVITY: As tolerated. DISCHARGE DIET: Heart healthy diet. DISCHARGE MEDICATIONS: Please see home medication list that was reconciled. FOLLOWUP APPOINTMENTS: The patient will follow up with primary care physician in 1 week as well as n eurologist in 1 week. DISCHARGE PLAN: Discharge plan was greater than 30 minutes.
[2017-08-25] MEDS ORDERED: Atorvastatin Calcium 20 MG TAB PO SCH (21:00)
== END 2017-08-25 15:55 | disposition home health service (06) ==
LOC: ERS 16:35 → 2SE 18:09
PROVIDERS: ADMIT Emergency Medicine; ATTEND Emergency Medicine
DX: R26.81 Unsteadiness on feet (principal); R47.81 Slurred speech; I10 Essential (primary) hypertension; E78.5 Hyperlipidemia, unspecified; G40.909 Epilepsy, unspecified, not intractable, without status epilepticus; Z86.011 Personal history of benign neoplasm of the brain; Z79.899 Other long term (current) drug therapy; Z79.82 Long term (current) use of aspirin; Z91.041 Radiographic dye allergy status
CPT/HCPCS: 36415; 36416; 70450; 70551; 80048; 80053; 80061; 80185; 80306; 82553; 84443; 84484; 85025; 93005; 96372; G0378; G8978-GP-CK; G8979-GP-CJ; G8987-GO-CJ; G8988-GO-CH; G8996-GN-CK; G8997-GN-CK; J1650

== ENCOUNTER 2017-10-31 13:32 | Inpatient (IN) | payer SELFPAY ==
[2017-10-31 14:46] LABS: #Basophils 0.1 thou/uL (0.0-0.2); #Eosinphils 0.2 thou/uL (0.0-0.7); #Lymphocytes 1.2 thou/uL (1.20-3.40); #Monocytes 0.2 thou/uL (0.11-0.59); #Neutrophils 1.5 thou/uL (1.40-6.50); %Basophils 1.7 % (0.0-1.0); %Eosinophils 5.8 % (0.0-10.0); %Lymphocytes 38.9 % (21.0-51.0); %Neutrophils 46.6 % (42.0-75.0); Hemoglobin 12.1 g/dL (14.0-18.0); Mean Corpuscular HGB CONC 34.8 g/dL (32.0-36.0); Mean Corpuscular Hemoglobin 31.2 pg (27.0-31.0); Mean Corpuscular Volume 89.5 fL (78.0-98.0); Mean Platelet Volume 6.5 fL (7.4-10.4); Platelet Count 234 thou/uL (130-400); RBC Distribution Width 13.4 % (11.5-14.5); Red Blood Cell (RBC) Count 3.88 mill/uL (4.70-6.10); White Blood Cell (WBC) Count 3.2 thou/uL (4.8-10.8)
--- NOTE | 2017-10-31 14:48 | RAD ---
RADIOGRAPH CHEST 1 VIEW: HISTORY: 42-year-old male with altered mental status. FINDINGS: There is cardiomegaly. There is no evidence of air space density, pulmonary edema, or pneumothorax. T he lateral costophrenic angles are sharp. IMPRESSION: 1. No acute pulmonary findings. 2. Cardiomegaly without congestive heart failure. aroldo [] POS: INOCENCIO
[2017-10-31 14:59] LABS: Bilirubin Negative (Negative); Blood, Urine Negative (Negative); Clarity CLEAR (Clear); Glucose, Urine (Dipstick) Negative (Negative); Leukocyte Negative (Negative); Nitrite Negative (Negative); Protein, Urine (Dipstick) Negative (Neg-Trace); Specific Gravity, Urine 1.018 (1.002-1.036); Urobilinogen 0.2 mg/dL (0.2-1.0)
[2017-10-31 15:00] LABS: Acetaminophen Less than 6.0 mcg/mL (10.0-30.0); Alcohol Less than 10 mg/dL (Less than 10); Salicylate Less than 8.0 mg/dL (15.0-30.0)
[2017-10-31 15:01] LABS: ALT (SGPT) 64 U/L (8-55); AST (SGOT) 28 U/L (5-34); Albumin 4.1 g/dL (3.5-5.0); Alkaline Phosphatase 89 U/L (40-150); Anion Gap 14 mmol/L (10-20); BUN (Urea Nitrogen) 10 mg/dL (8.9-20.6); Bilirubin, Total 0.3 mg/dL (0.2-1.2); CK (CPK) 64 U/L (30-200); Calc. Creatinine Clearance 0 mL/min (70-130); Calcium 9.1 mg/dL (7.8-10.44); Carbon Dioxide 22 mmol/L (22-29); Chloride 105 mmol/L (98-107); Estimated GFR-MDRD Greater than 90; Globulin 3.2 g/dL (2.4-3.5); Glucose 89 mg/dL (70-105); Lipase 21 U/L (8-78); Protein, Total 7.3 g/dL (6.0-8.3); Sodium 137 mmol/L (136-145)
[2017-10-31 15:20] LABS: Amphetamine Not Detected (NotDetected); Barbiturates Screen Detected (NotDetected); Benzodiazepine Screen Not Detected (NotDetected); Cocaine Metabolite Screen Not Detected (NotDetected); Medtox Control Line Valid? VALID (VALID); Medtox Reader # READER 4; Methadone Not Detected (NotDetected); Methamphetamine Not Detected (NotDetected); Opiate Screen Not Detected (NotDetected); Oxycodone Screen Not Detected (NotDetected); Phencyclidine (PCP) Not Detected (NotDetected); THC/Cannabinoid Screen Not Detected (NotDetected); Tricyclic Screen Not Detected (NotDetected)
--- NOTE | 2017-10-31 15:43 | CT ---
CT BRAIN NONCONTRAST: DATE: 10/31/17 TIME: 1454 hours HISTORY: 42-year-old male with altered mental status, confusion, right-sided weakness, dysphagia, and dysarthr ia. History of tumor removal, stroke, and seizures. COMPARISON: CT of 10/26/17. FINDINGS: Left frontal craniotomy changes. Deep to that, there is a left anterior upper frontal intra-axial cys tic cavity measuring 3.5 x 2.5 cm, presumably the site of tumor removal. Ex vacuo dilation of frontal horn of left lateral ventricle. Surrounding left frontal lobe encephalomalacia and gliosis. Moderate chronic ischemic white matter changes. Multiple tiny old lacunar infarctions in the bilateral corpus striatum. Calcification of much of the left basal ganglia, perhaps site of previous hemorrhage. No o bstructive hydrocephalus, mass effect, midline shift, acute hemorrhage, or extra-axial fluid collecti on. No interval change overall. IMPRESSION: 1. Old left frontal craniotomy, and left frontal lobe brain parenchymal surgical cavity at site of p revious tumor removal. 2. Calcifications, which may be sequelae of old, prior hemorrhage, in the left basal ganglia. 3. Multiple tiny old lacunar infarctions in bilateral corpus striatum. 4. No acute intracranial findings. GABE Khoury POS: INOCENCIO
[2017-10-31 15:57] LABS: CKMB 0.3 ng/mL (0-6.6); Troponin I Less than 0.010 ng/mL (< 0.028)
[2017-10-31] MEDS ORDERED: Fosphenytoin Sodium 1,500 MG in Sodium Chloride 0.9% 100 ML IVPB SCH (16:00)
[2017-10-31] MEDS ORDERED: diphenhydrAMINE 12.5 MG/5 ML UDCUP ONE (17:16)
[2017-10-31] MEDS ORDERED: diphenhydrAMINE 50 MG/ML VIAL ONE (17:18)
[2017-10-31] MEDS ORDERED: Ondansetron PF 4 MG/2 ML Vial IVP PRN (17:47)
[2017-10-31] MEDS ORDERED: Ondansetron ODT 4 MG TAB SL PRN (17:47)
[2017-10-31] MEDS ORDERED: Aspirin 325 MG TAB PO SCH (18:00)
[2017-10-31 18:26] VITALS: BMI 30.7
[2017-10-31] MEDS ORDERED: Acetaminophen 325 MG TAB PO PRN (18:50)
[2017-10-31] MEDS ORDERED: Phenytoin 125 MG/5 ML UDCUP PO SCH (21:00)
[2017-10-31] MEDS: Sodium Chloride 0.9% 1,000 ML IV SCH (21:08)
[2017-10-31] MEDS: Atorvastatin Calcium 20 MG TAB PO SCH (21:11)
--- NOTE | 2017-10-31 22:41 | HP ---
DATE OF ADMISSION: 10/31/2017 PRIMARY CARE PHYSICIAN: [facility]. CHIEF COMPLAINT: Right leg weakness. HISTORY OF PRESENT ILLNESS: This is a 42-year-old male with history of stroke in 07/2017, seizure disorder, brain tumor surgically resected in 1994, hypertension, dyslipidemia, who presents to the emergency room with his due to inability to use his right leg. All of the history is obtained from the patient's . The patient was hospitalized here from Wednesday10/27/2017 to 10/28/2017 for monitoring due to change in speech. He underwent an evaluation for stroke that was negative for any acute process, was discharged to home with the addition of carvedilol for improved blood pressure control. His reports he was his usual self on the following 2 days. This morning, she returned home from the nightclub manager and went to bed around 6:00 a.m. She reports that he woke her up at noon because he could not use his walker and was dragging his right leg. There were no signs of this yesterday; however, he did have a similar presentation with a stroke back in July. She also noticed that his speech was "funny" and was mumbling and not as clear as normal. He asked her to go to the hospital, which is also unusual for him. She has not noticed any fevers, chills, nausea or vomiting, or precipitants or relieving factors. No change in his food intake and he is on generally a mechanical soft diet with nectar thick liquids. He has not missed any of his medications. He has not started the new medication, carvedilol, started during the last admission as she was uncertain on if this should be in addition to the amlodipine. Patient does have a seizure disorder in the past. With a typical seizure, he would be dazed, have speech changes, have some unusual movements in his arm that were followed by headache. The last one that she noticed was about 2 weeks ago. He is being consistent with his Dilantin intake and states that he takes all of his medicines without difficulty. At baseline, the patient is walking with a walker, generally does not speak much , and has a poor memory secondary to both the stroke, has a poor memory. In the emergency room, patient's presentation concerning for the acute onset of neurologic changes, he was found to have a low Dilantin level and received 1500 mg of fosphenytoin and Hospitalist called for admission. ALLERGIES: IODINE. CURRENT MEDICATIONS: Reconciled with the patient's and the last discharge summary dated 10/28/2017. 1. Amlodipine 10 mg daily. 2. Dilantin 200 mg b.i.d. 3. Aspirin 325 mg daily. 4. Lipitor 20 mg at bedtime. 5. Medication prescribed, but not yet taken, carvedilol 6.25 mg b.i.d. PAST MEDICAL HISTORY: 1. Hypertension. 2. Benign brain tumor resected in 1994. 3. History of stroke in 07/2017, evaluated in this hospital. 4. Dyslipidemia. PAST SURGICAL HISTORY: Benign brain tumor resection in 1994. SOCIAL HISTORY: The patient lives with his , no reported alcohol or drugs. FAMILY HISTORY: Per his last chart review is negative for stroke or seizure. REVIEW OF SYSTEMS: Not obtainable from the patient and only as noted above. PHYSICAL EXAMINATION: VITAL SIGNS: Blood pressure 166/122, temperature 98.6, pulse 78, respirations 16, saturations 93% on room air. GENERAL: The patient awakens to voice, can answer some answers some simple questions, easily falls asleep. He is not in apparent distress. HEENT: Pupils equal, round, reactive to light. Extraocular movements intact. Oral mucosa is pink. NECK: Supple, nontender. LYMPHATICS: No palpable cervical or supraclavicular lymphadenopathy. LUNGS: Clear to auscultation bilateral. No audible wheezing, rhonchi or rales. HEART: Normal S1, S2, regular rate and rhythm, no audible murmurs. ABDOMEN: Soft. Present bowel sounds. Nontender, nondistended. EXTREMITIES: No clubbing, cyanosis, or edema. NEUROLOGIC: Right upper extremity strength 3/5. Right lower extremity, able to wiggle his toes only. No other movements. Reflexes are 2+ patellar, Achilles, biceps and brachioradialis. PSYCHIATRIC: Oriented to not place, time and oriented to person. SKIN: No visible rashes. EKG: Personally reviewed, sinus rhythm, normal axis, normal intervals, no ST changes. IMAGING: CT of the brain, no acute change; old left frontal craniotomy and left frontal lobe brain parenchymal surgical cavity at the site of previous tumor removal; evidence for old prior hemorrhage in the left basal ganglia; multiple tiny old lacunar infarctions in the bilateral corpus striatum. Chest x-ray personally reviewed, cardiomegaly, no acute process. LABORATORY DATA: 1. CBC 3.2, 12.1, 34.7, 234. 2. Renal panel 137, 4.0, 105, 22, 10, 0.95, 89. 3. LFTs only notable for an ALT mildly elevated at 64. 4. Prolactin 44.36. 5. TSH 1.46. 6. Urinalysis 1.018 and negative. 7. Urine drug screen negative. Negative salicylate, acetaminophen, positive for barbiturates, negative for alcohol. 8. Phenytoin 6.8. IMPRESSION: 1. Acute right lower extremity weakness with underlying history of recent stroke, history of seizure disorder, history of benign tumor resection with elevated prolactin level and low Dilantin level. The presentation seems consistent with reactivation of prior stroke symptoms, which I wonder if it's related to uncontrolled seizures. 2. Hypertension, uncontrolled. 3. Dyslipidemia. 4. Seizure disorder. 5. Chronic anemia, mild. 6. Chronic leukopenia. 7. Mildly elevated liver function test. PLAN: 1. Observation status in the hospital. 2. Neurology consultation given the patient's recent admission, low Dilantin level, and new neurologic change. Pr 3. Monitoring on telemetry. 4. Permissive hypertension, I will use p.r.n. hydralazine for blood pressure greater than 220/110 per stroke protocol. 5. Continuing the aspirin and statin. 6. Holding his home antihypertensives. 7. Patient did receive IV fosphenytoin. We will continue his home Dilantin dose. 8. I discussed with the patient's . The differential diagnosis includes seizure disorder somehow triggering new or reactivating old stroke symptoms, versus new stroke versus other neurologic process, with request for Neurology to help clarify the diagnosis and treatment. 9. Anemia, Leukopenia, elevated LFT's need outpatient follow-up. 10. Deep venous thrombosis prophylaxis with enoxaparin and SCDs. 11. Gastrointestinal prophylaxis not indicated. The patient will be continued on soft mechanical diet with nectar thick liquids as previously recommended when /if he passes the swallow study. 12. Code status is FULL and surrogate decision maker is the patient's . 13. Reviewed the plan of care with the patient and his . No questions or further needs at end of evaluation. 14. The patient is at high risk given age, comorbidities, and current presentation. MTDD
[2017-11-01 04:42] LABS: Anion Gap 16 mmol/L (10-20); BUN (Urea Nitrogen) 11 mg/dL (8.9-20.6); Calc. Creatinine Clearance 115 mL/min (70-130); Calcium 9.4 mg/dL (7.8-10.44); Carbon Dioxide 23 mmol/L (22-29); Chloride 103 mmol/L (98-107); Estimated GFR-MDRD Greater than 90; Glucose 111 mg/dL (70-105); Potassium 3.6 mmol/L (3.5-5.1); Sodium 138 mmol/L (136-145)
[2017-11-01] MEDS: Sodium Chloride 0.9% 1,000 ML IV SCH ×3 (08:36→17:45)
[2017-11-01] MEDS: Enoxaparin Sodium 40 MG/0.4 ML SYRINGE SC SCH (08:37)
[2017-11-01] MEDS: Aspirin 325 MG TAB PO SCH (11:06)
--- NOTE | 2017-11-01 12:51 | PDOC.PN ---
- Subjective Encounter Start Date: 11/01/17 Encounter Start Time: 10:35 -: old records requested/rev pT SEEN AND EXAMINED, CHART REVIEWED IN ITS ENTIRETY, THIS IS MY FIRST VISIT WITH THIS PATIENT DURING THIS ENCOUNTER admitted fro right leg weakenss, witness jerking motions of right leg and occasionaly right hand and/or arm shaking no change in mental status, pt awake during these. tkaing duilantin as previosuly prescribed. No F/C, no N/V/D/c. Awaiting neurology consult, called in this AM. All systems reviewed adn neg x as above - Objective Resuscitation Status: Resuscitation Status FULL:Full Resuscitation MAR Reviewed: Yes Vital Signs & Weight: Vital Signs (12 hours) Temp Pulse Pulse Pulse Resp BP BP 11/01/17 11:44 98.5 F 60 20 11/01/17 09:13 60 61 153/102 H 156/106 H 11/01/17 08:37 140/90 11/01/17 08:25 98.6 F 66 20 11/01/17 07:53 98.6 F 66 20 11/01/17 06:14 11/01/17 03:15 99.2 F 73 20 BP Pulse Ox 11/01/17 11:44 140/60 97 11/01/17 09:13 11/01/17 08:37 11/01/17 08:25 11/01/17 07:53 140/90 97 11/01/17 06:14 134/98 H 11/01/17 03:15 97 Weight Weight 201 lb 14.4 oz I&O: 10/31/17 11/01/17 11/02/17 06:59 06:59 06:59 Intake Total 1620 Output Total 300 225 Balance 1320 -225 Result Diagrams: 10/31/17 14:32 11/01/17 04:04 Radiology Reviewed by me: Yes EKG Reviewed by me: Yes Phys Exam - Physical Examination Constitutional: NAD HEENT: PERRLA, moist MMs, sclera anicteric, oral pharynx no lesions Neck: no nodes, no JVD, supple, full ROM Respiratory: no wheezing, no rales, no rhonchi, clear to auscultation bilateral Cardiovascular: RRR, no significant murmur, no rub Gastrointestinal: soft, non-tender, no distention, positive bowel sounds Musculoskeletal: no edema, pulses present Neurological: non-focal, normal sensation RLE and slight RUE weakness, 1-2/5. Lymphatic: no nodes Psychiatric: normal affect, A&O x 3 Skin: no rash, normal turgor, cap refill <2 seconds Dx/Plan (1) Right sided weakness Code(s): R53.1 - WEAKNESS Status: Acute (2) CKD (chronic kidney disease), stage II Code(s): N18.2 - CHRONIC KIDNEY DISEASE, STAGE 2 (MILD) Status: Chronic (3) History of brain tumor Code(s): Z87.898 - PERSONAL HISTORY OF OTHER SPECIFIED CONDITIONS Status: Chronic (4) Hypertension Code(s): I10 - ESSENTIAL (PRIMARY) HYPERTENSION Status: Chronic Qualifiers: Hypertension type: essential hypertension Qualified Code(s): I10 - Essential (primary) hypertension (5) Seizure Code(s): R56.9 - UNSPECIFIED CONVULSIONS Status: Acute (6) Seizure disorder Code(s): G40.909 - EPILEPSY, UNSP, NOT INTRACTABLE, WITHOUT STATUS EPILEPTICUS Status: Chronic Comment: on dilantin, level low, loaded IV, po, AM repeat level - Plan cont current plan of care, plan discussed w/ family, PT/OT * .
[2017-11-01] MEDS: Atorvastatin Calcium 20 MG TAB PO SCH (22:39)
[2017-11-01] MEDS: levETIRAcetam 500 MG TAB PO SCH (22:39)
--- NOTE | 2017-11-02 00:57 | CON ---
DATE OF CONSULTATION: 11/01/2017 REASON FOR CONSULTATION: Acute onset of right lower extremity weakness. HISTORY OF PRESENT ILLNESS: Mr. Rahman is a pleasant 42-year-old - [place] male, who has been consulted for evaluation of acute onset of right lower extremity weakness. The patient is known to me from his recent admission about 1 week ago, at which time, he had presented with the similar complaints. reports that after being discharged from the hospital, he was slowly recovering. On yesterday morning when he woke up and noted that he was not able to move his right lower extremity. In order to walk, he was dragging his right leg as his strength got worsened and this was new. She decided to bring him back to the emergency room. She states that on yesterday while in the hospital, he had a sudden onset of right leg jerking, there was involuntarily and that lasted for a few minutes and resolved on its own. She states that his strength has not improved since being admitted to the hospital. PAST MEDICAL HISTORY: Unchanged from my previous dictated consultation note done on 10/27/2017. PAST SURGICAL HISTORY: Unchanged from my previous dictated consultation note done on 10/27/2017. FAMILY HISTORY: Unchanged from my previous dictated consultation note done on 10/27/2017. SOCIAL HISTORY: Unchanged from my previous dictated consultation note done on 10/27/2017. CURRENT MEDICATIONS: Unchanged from my previous dictated consultation note done on 10/27/2017. ALLERGIES: Unchanged from my previous dictated consultation note done on 2017. REVIEW OF SYSTEMS: As mentioned in the HPI, otherwise negative. PHYSICAL EXAMINATION: VITAL SIGNS: Blood pressure of 145/60, pulse of 71, temperature of 99.1, respirations are 20, O2 sats of 96% on room air. GENERAL: A well-developed, well-nourished -[place]isian male in no apparent distress. RESPIRATORY: Clear to auscultation bilaterally. CARDIOVASCULAR: Regular rate and rhythm. NEUROLOGIC: Mental status: The patient is awake, alert, oriented x3. Speech and language: Fluent speech. Cranial nerves: Pupils are 3 mm and reactive. Visual wong are intact. Extraocular muscles are intact. No nystagmus. Face is symmetric. Tongue and uvula midline. Motor exam showed increased tone of the right upper and right lower extremity. He has a spastic catch in the right upper extremity. He has 3-5 beat clonus in the right lower extremity at the ankle. His strength in the left upper and left lower extremity is 5/5. His strength in the right upper extremity is 4/5. His strength in the right lower extremity is 0/5, although he provides no effort during the examination when I tried to perform Amaral sign. There was no movement noted on the left lower extremity when I asked him to push with the right leg which suggests is positive Amaral's sign. Deep tendon reflexes, brisk reflexes in the right upper and right lower extremity. Babinski plantar responses equivocal on both sides. LABORATORY DATA: Reviewed, which included CBC, CMP, urinalysis, urine drug screen, plasma-alcohol level and Dilantin level which is significant for WBC of 3.2, hemoglobin 12.1, hematocrit 34.7. Dilantin level was 6.8, otherwise unremarkable. IMAGING STUDIES: CT head without contrast was reviewed, which showed no acute intracranial abnormality. IMPRESSION: 1. Acute right lower extremity weakness. 2. Prior history of stroke. 3. Seizure disorder. PLAN: Mr. Rahman is a pleasant 42-year-old -[place] male who presented with an acute onset of right lower extremity weakness. On exam, he has brisk reflexes, spastic catch and clonus at the right ankle. He had a recent MRI brain, which did not show any new acute intracranial abnormality. At this time , the likely etiology for right lower extremity weakness could be secondary to a post-seizure Ciaran's paralysis, new acute ischemic event or cervical cord pathology as he is having spastic catch and clonus at the ankle. One of my other concern is poor effort and giveaway weakness as he did have a positive Amaral sign on my exam. I would recommend obtaining MRI C-spine with and without contrast as well as MRI brain without contrast to rule out any acute ischemic event. I will add Keppra 500 mg b.i.d. for seizure prevention. Continue supportive care. MILLERD
[2017-11-02] MEDS: Sodium Chloride 0.9% 1,000 ML IV SCH ×2 (04:02→17:29)
[2017-11-02 04:52] LABS: Anion Gap 14 mmol/L (10-20); BUN (Urea Nitrogen) 10 mg/dL (8.9-20.6); Calc. Creatinine Clearance 121 mL/min (70-130); Calcium 8.9 mg/dL (7.8-10.44); Carbon Dioxide 22 mmol/L (22-29); Chloride 108 mmol/L (98-107); Estimated GFR-MDRD Greater than 90; Glucose 104 mg/dL (70-105); Magnesium 2.2 mg/dL (1.6-2.6); Potassium 3.8 mmol/L (3.5-5.1); Sodium 140 mmol/L (136-145)
[2017-11-02 05:06] LABS: Hemoglobin 12.2 g/dL (14.0-18.0); Mean Corpuscular HGB CONC 33.7 g/dL (32.0-36.0); Mean Corpuscular Hemoglobin 30.5 pg (27.0-31.0); Mean Corpuscular Volume 90.3 fL (78.0-98.0); Mean Platelet Volume 6.4 fL (7.4-10.4); Platelet Count 246 thou/uL (130-400); RBC Distribution Width 13.5 % (11.5-14.5); Red Blood Cell (RBC) Count 3.99 mill/uL (4.70-6.10); White Blood Cell (WBC) Count 4.5 thou/uL (4.8-10.8)
[2017-11-02 05:07] LABS: Band 1 % (5-11); Eosinophils 4 % (0-10); Lymphocytes 65 % (21-51); MDiff Complete? YES; Monocytes 2 % (0-10); Neutrophil 28 % (42-75); PLT Morphology Comment Appears Adequate; RBC Morphology Normal
[2017-11-02] MEDS: levETIRAcetam 500 MG TAB PO SCH ×2 (08:47→21:00)
[2017-11-02] MEDS: Enoxaparin Sodium 40 MG/0.4 ML SYRINGE SC SCH (08:47)
[2017-11-02] MEDS: Aspirin 325 MG TAB PO SCH (08:47)
--- NOTE | 2017-11-02 09:42 | MRI ---
BRAIN MRI WITHOUT CONTRAST: INDICATIONS: Right lower extremity weakness, new onset. COMPARISON: Reference made to brain MRI from 10/27/[address] from 10/31/2017. FINDINGS: There are foci of restricted diffusion involving the left dong radiata and the left centrum semiova le, posteriorly. A subtle area of T2 shine-through is seen within the right dong radiata, and ther e are bilateral lacunar infarctions, as well as a moderate sized region of left frontal encephalomala óscar, with overlying craniotomy and surrounding hemosiderin staining. Moderate chronic ischemic disea se is present. There is ex vacuo dilatation of the ventricular system. The exam is otherwise grossl y stable to an 10/27/2017 brain MRI. IMPRESSION: Foci of recent infarctions have developed since prior exam, involving the left dong radiata and lef t centrum semiovale, which are superimposed upon chronic ischemic disease and multifocal remote infar ctions. POS: [facility]
--- NOTE | 2017-11-02 10:25 | MRI ---
MRI CERVICAL SPINE WITH AND WITHOUT CONTRAST: HISTORY: Right lower extremity weakness. Foot drag while walking. History of brain tumor with resection. Evaluate for cord anomaly. COMPARISON: None. TECHNIQUE: Cervical spine MRI is performed with and without intravenous Gadolinium administration. Multisequent ial, multiplanar imaging is performed. FINDINGS: There is straightening of normal cervical lordosis. Vertebral body height is maintained. There is n o fracture. There is intrinsic T1 and T2 hyperintensity involving the inferior endplate of C6 and th e superior endplate of C7, compatible with type II modic change. No significant enhancement or fluid in the intervening disks. No significant STIR hyperintensity to suggest vertebral body edema or ligamentous injury. The visualized brain parenchyma, cervicomedullary junction, cervical cord, and upper thoracic cord garza ve normal size and signal intensity. There is no abnormal enhancement on the post contrast sequence. C2-C3: No significant disk osteophyte complex. No significant central canal stenosis. The foramina are patent. C3-C4: No significant disk osteophyte complex. No significant central canal stenosis. The neural f oramina are patent. C4-C5: There is a moderate disk osteophyte complex that abuts the thecal sac. There is minimal cent ral canal stenosis. Degenerative changes in the right and left uncovertebral joints result in modera te bilateral foraminal narrowing. C5-C6: No significant disk osteophyte complex. No significant central canal stenosis. Mild to mode rate right foraminal narrowing due to degenerative change of the uncovertebral joint. Mild left fora ramiro narrowing due to degenerative change of the uncovertebral joint. C6-C7: Broad-based disk osteophyte complex abuts the thecal sac. No significant central canal steno sis. Mild bilateral foraminal narrowing. C7-T1: No significant disk osteophyte complex. No significant central canal stenosis. The foramina are patent. IMPRESSION: 1. Degenerative changes of the cervical spine as above. No high grade central canal stenosis or hig h grade foraminal narrowing. 2. No signal abnormality in the cervical cord. POS: [facility]
--- NOTE | 2017-11-02 11:15 | PDOC.PN ---
- Subjective Encounter Start Date: 11/02/17 Encounter Start Time: 10:40 Pt still with RLE paralysis, just drags his leg. Neurology saw, MRI Cspine and isela obtained, results reviewed. No F/C, no further shaking spells, no N/V/d/C, no CP or SOB All systems reviewed and neg x as above - Objective Resuscitation Status: Resuscitation Status FULL:Full Resuscitation MAR Reviewed: Yes Vital Signs & Weight: Vital Signs (12 hours) Temp Pulse Resp BP Pulse Ox 11/02/17 08:00 98.0 F 83 20 160/90 H 100 11/02/17 03:04 97.4 F L 90 20 146/91 H 96 11/01/17 23:28 97.9 F 74 20 175/119 H 97 Weight Weight 201 lb 14.4 oz I&O: 11/01/17 11/02/17 11/03/17 06:59 06:59 06:59 Intake Total 1620 885 Output Total 300 1425 Balance 1320 -540 Result Diagrams: 11/02/17 04:09 11/02/17 04:09 Radiology Reviewed by me: Yes (MRI SCpine ok, MRI isela new infarcts) Phys Exam - Physical Examination Constitutional: NAD HEENT: PERRLA, moist MMs, sclera anicteric, oral pharynx no lesions Neck: no nodes, no JVD, supple, full ROM Respiratory: no wheezing, no rales, no rhonchi, clear to auscultation bilateral Cardiovascular: RRR, no significant murmur, no rub Gastrointestinal: soft, non-tender, no distention, positive bowel sounds Musculoskeletal: pulses present, edema present RUE 3/5 strength, RLE 0/5 strength Lymphatic: no nodes Psychiatric: normal affect, A&O x 3 Skin: no rash, normal turgor, cap refill <2 seconds Dx/Plan (1) Right sided weakness Code(s): R53.1 - WEAKNESS Status: Acute (2) CKD (chronic kidney disease), stage II Code(s): N18.2 - CHRONIC KIDNEY DISEASE, STAGE 2 (MILD) Status: Chronic (3) History of brain tumor Code(s): Z87.898 - PERSONAL HISTORY OF OTHER SPECIFIED CONDITIONS Status: Chronic (4) Hypertension Code(s): I10 - ESSENTIAL (PRIMARY) HYPERTENSION Status: Chronic Qualifiers: Hypertension type: essential hypertension Qualified Code(s): I10 - Essential (primary) hypertension (5) Seizure Code(s): R56.9 - UNSPECIFIED CONVULSIONS Status: Acute (6) Seizure disorder Code(s): G40.909 - EPILEPSY, UNSP, NOT INTRACTABLE, WITHOUT STATUS EPILEPTICUS Status: Chronic Comment: on dilantin, level low, loaded IV, po, AM repeat level (7) Acute ischemic cerebrovascular accident (CVA) involving left middle cerebral artery territory Code(s): I63.512 - CEREB INFRC D/T UNSP OCCLS OR STENOS OF LEFT MID CEREB ART Status: Acute Comment: new dong radiata infarcts on the left. dont explain these symtoms well. follow up on neuro recs. likely need to add plavix and decrease ASA - Plan cont current plan of care, plan discussed w/ family, PT/OT, certified social workers in health care, 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
[2017-11-02] MEDS: hydrALAZINE 20 MG/ML VIAL SLOW IVP PRN ×2 (12:18→22:41)
[2017-11-02] MEDS: Atorvastatin Calcium 20 MG TAB PO SCH (20:59)
[2017-11-03] MEDS: Sodium Chloride 0.9% 1,000 ML IV SCH ×3 (00:25→16:13)
[2017-11-03] MEDS: Enoxaparin Sodium 40 MG/0.4 ML SYRINGE SC SCH (09:02)
[2017-11-03] MEDS: levETIRAcetam 500 MG TAB PO SCH ×2 (09:02→21:20)
[2017-11-03] MEDS: Aspirin 325 MG TAB PO SCH (09:03)
--- NOTE | 2017-11-03 15:40 | PDOC.PN ---
- Subjective Encounter Start Date: 11/03/17 Encounter Start Time: 15:30 No acute events, no new complaints, awaitng neuro input for abnormal MRI. no new seizure activity No F/C, no Nvdc, no improvment in RLE all systems reviewed adn neg x as above - Objective Resuscitation Status: Resuscitation Status FULL:Full Resuscitation MAR Reviewed: Yes Vital Signs & Weight: Vital Signs (12 hours) Temp Pulse Resp BP Pulse Ox 11/03/17 12:33 143/105 H 11/03/17 11:59 97.8 F 100 20 148/120 H 94 L 11/03/17 08:00 98.5 F 90 18 160/90 H 95 11/03/17 04:40 128/86 11/03/17 04:00 97.9 F 95 18 98 Weight Admit Weight 201 lb 14.4 oz Weight 201 lb 14.4 oz I&O: 11/02/17 11/03/17 11/04/17 06:59 06:59 06:59 Intake Total 885 2430 540 Output Total 1425 1250 150 Balance -540 1180 390 Result Diagrams: 11/02/17 04:09 11/02/17 04:09 Phys Exam - Physical Examination Constitutional: NAD HEENT: PERRLA, moist MMs, sclera anicteric, oral pharynx no lesions Neck: no nodes, no JVD, supple, full ROM Respiratory: no wheezing, no rales, no rhonchi, clear to auscultation bilateral Cardiovascular: RRR, no significant murmur, no rub Gastrointestinal: soft, non-tender, no distention, positive bowel sounds Musculoskeletal: pulses present, edema present 0/2 RLE, 3/5 RUE strength Lymphatic: no nodes Psychiatric: normal affect, A&O x 3 Skin: no rash, normal turgor, cap refill <2 seconds Dx/Plan (1) Right sided weakness Code(s): R53.1 - WEAKNESS Status: Acute Comment: axcute to subacute ischemic infarcts, enw on MRI since last week. ASA 325 daily, follow up on neuro recommendations (2) CKD (chronic kidney disease), stage II Code(s): N18.2 - CHRONIC KIDNEY DISEASE, STAGE 2 (MILD) Status: Chronic (3) History of brain tumor Code(s): Z87.898 - PERSONAL HISTORY OF OTHER SPECIFIED CONDITIONS Status: Chronic (4) Hypertension Code(s): I10 - ESSENTIAL (PRIMARY) HYPERTENSION Status: Chronic Qualifiers: Hypertension type: essential hypertension Qualified Code(s): I10 - Essential (primary) hypertension (5) Seizure Code(s): R56.9 - UNSPECIFIED CONVULSIONS Status: Acute Comment: suspect partialseizures, none since starting Keppra. Follow up on neuro recs (6) Seizure disorder Code(s): G40.909 - EPILEPSY, UNSP, NOT INTRACTABLE, WITHOUT STATUS EPILEPTICUS Status: Chronic Comment: on dilantin, level low, loaded IV, po, AM repeat level (7) Acute ischemic cerebrovascular accident (CVA) involving left middle cerebral artery territory Code(s): I63.512 - CEREB INFRC D/T UNSP OCCLS OR STENOS OF LEFT MID CEREB ART Status: Acute Comment: new dong radiata infarcts on the left. dont explain these symtoms well. follow up on neuro recs. likely need to add plavix and decrease ASA - Plan cont current plan of care, PT/OT * .
--- NOTE | 2017-11-03 19:18 | PRG ---
DATE OF SERVICE: 11/03/2017 SUBJECTIVE: Mr. Rahman is a pleasant 42-year-old -[place] male who presented with the acute onset right lower extremity weakness. is at bedside who reports that there is some improvement in his strength; however, continues to be weak on his right lower extremity. He did have MRI of brain and cervical spine done yesterday. MRI brain did show acute ischemic infarct involving the left dong radiata and left centrum semiovale. His MRI C-spine showed mild degenerative changes at C4-C5, C6-C7 without any cord signal abnormality or cord compression. PHYSICAL EXAMINATION: VITAL SIGNS: Blood pressure 143/105, pulse of 100, temperature of 98.8, respirations are 20, O2 sats of 97% on room air. GENERAL: Well-developed, well-nourished -[place] male in no apparent distress. RESPIRATORY: Clear to auscultation bilaterally. CARDIOVASCULAR: Regular rate and rhythm. NEUROLOGIC: Essentially unchanged when compared to day before yesterday. IMAGING STUDIES: MRI brain without contrast and MRI C-spine without contrast were reviewed. Findings are as noted in subjective component of this dictation. IMPRESSION: 1. Acute left cerebral hemisphere ischemic infarct. 2. Hypertension. 3. Right lower extremity weakness due to left cerebral hemisphere ischemic infarct. ASSESSMENT AND PLAN: Mr. Rahman is a pleasant 42-year-old -[place] male who presents with right lower extremity weakness. His MRI brain does show an acute left cerebral hemisphere ischemic infarct, which may explain his right lower extremity weakness. At this time, I will recommend continuing PT/OT. I would recommend continuing him on aspirin 325 mg daily for secondary stroke prevention. He had echocardiogram done on his recent admission and there is no need to repeat echocardiogram. He also had carotid Dopplers done in his recent admission and thus no need to repeat another carotid Dopplers, no further neurological workup needed from my standpoint. DANIEL
[2017-11-03] MEDS: Atorvastatin Calcium 20 MG TAB PO SCH (21:19)
[2017-11-04 05:52] LABS: Anion Gap 11 mmol/L (10-20); BUN (Urea Nitrogen) 10 mg/dL (8.9-20.6); Calc. Creatinine Clearance 116 mL/min (70-130); Calcium 9.6 mg/dL (7.8-10.44); Carbon Dioxide 28 mmol/L (22-29); Chloride 103 mmol/L (98-107); Estimated GFR-MDRD Greater than 90; Glucose 92 mg/dL (70-105); Magnesium 2.3 mg/dL (1.6-2.6); Sodium 138 mmol/L (136-145)
[2017-11-04 06:58] LABS: Band 5 % (5-11); Eosinophils 3 % (0-10); Hemoglobin 13.3 g/dL (14.0-18.0); Lymphocytes 61 % (21-51); MDiff Complete? YES; Mean Corpuscular HGB CONC 33.3 g/dL (32.0-36.0); Mean Corpuscular Hemoglobin 30.1 pg (27.0-31.0); Mean Corpuscular Volume 90.3 fL (78.0-98.0); Mean Platelet Volume 6.6 fL (7.4-10.4); Monocytes 5 % (0-10); Neutrophil 25 % (42-75); PLT Morphology Comment Appears Adequate; Platelet Count 271 thou/uL (130-400); RBC Distribution Width 13.6 % (11.5-14.5); Red Blood Cell (RBC) Count 4.42 mill/uL (4.70-6.10); White Blood Cell (WBC) Count 4.3 thou/uL (4.8-10.8)
[2017-11-04 08:22] VITALS: BP 154/102
[2017-11-04] MEDS ORDERED: Clopidogrel Bisulfate 75 MG TAB PO SCH (09:00)
[2017-11-04] MEDS ORDERED: Amlodipine 10 MG TAB PO SCH (09:15)
[2017-11-04] MEDS ORDERED: Carvedilol 6.25 MG TAB PO SCH ×2 (09:15→21:00)
[2017-11-04] MEDS: levETIRAcetam 500 MG TAB PO SCH (09:33)
[2017-11-04] MEDS: Enoxaparin Sodium 40 MG/0.4 ML SYRINGE SC SCH (09:34)
[2017-11-04 12:11] VITALS: TEMP 97.5
--- NOTE | 2017-11-04 13:00 | DIS ---
DATE OF ADMISSION: 10/31/2017 DATE OF DISCHARGE: 11/04/2017 PRIMARY CARE PHYSICIAN: [facility] NEUROLOGIST: Qian Lira M.D. DISCHARGE DIAGNOSES: 1. Subacute left middle cerebral artery distribution stroke. 2. Right lower extremity weakness. 3. Partial seizures. 4. History of seizure disorder. 5. Essential hypertension. 6. Cerebrovascular disease. CONSULTATIONS: Dr. Qian Lira with Neurology. PROCEDURES: None. HISTORY AND PHYSICAL: Mr. Rahman is a 42-year-old gentleman who was admitted from the Emergency Depa rtment after presenting to the OR on 10/31 with complaints of right lower extremity weakness and shakin g activities in right leg and right arm. He was worked up in the emergency department, CT scan was n egative. We were subsequently called for admission. HOSPITAL COURSE: The patient was seen and examined by Dr. Verónica Roberts and placed in inpatient status . Stroke protocol was initiated. Overnight, the patient had no large change. His Dilantin level came back low. A Neurology consultat ion entered and the previous night that was filled with Dr. Lira, saw him that evening. I did add tw o antiepileptics with Keppra 500 b.i.d. and recommended MRI of the C-spine and brain. Those were don e the morning of 11/02/2017. He had no further shaking activity. MRI surprisingly showed two newly developed areas of acute infarction in the left MCA distribution. He was seen again by Dr. Lira the afternoon of 11/03/2017. I recommended continuing a maximal antiplatelet. Today on 11/04/2017, he is feeling back to himself, was able to ambulate with physical therapy 100 fe et and has more use of his right lower extremity. He had no further seizure activity. I discussed w ith Dr. Clancy. I decided to put him on baby aspirin plus a new medication of Plavix and outpatient followup. The patient had no insurance, was unable to go to rehab or get home health care. PHYSICAL EXAMINATION: The patient was seen and examined on the day. Discharge plan was discussed wi th the patient and his at the bedside. DISCHARGE MEDICATIONS: New medications, 1. Plavix 75 mg p.o. b.i.d., prescription sent. 2. Keppra 500 mg p.o. b.i.d. New prescription sent. 3. Aspirin 81 mg daily. Medicines continue, 1. Lipitor 20 mg p.o. at bedtime. 2. Coreg 6.25 mg p.o. b.i.d. 3. Norvasc 10 mg daily. 4. Dilantin ER 200 mg p.o. b.i.d. FOLLOWUP APPOINTMENTS: 1. Primary care physician next available. 2. Dr. Lira in 2 weeks. DISCHARGE CONDITION: Stable. DISPOSITION: Discharged to home via private vehicle. DISCHARGE ACTIVITY: Per cardiopulmonary and neurologic limits. DISCHARGE DIET: Heart healthy recommended.
[2017-11-05] MEDS ORDERED: Amlodipine 10 MG TAB PO SCH (09:00)
--- NOTE | 2017-11-06 21:00 | EKG ---
Test Reason : Blood Pressure : / mmHG Vent. Rate : 068 BPM Atrial Rate : 068 BPM P-R Int : 188 ms QRS Dur : 110 ms QT Int : 408 ms P-R-T Axes : 059 003 012 degrees QTc Int : 433 ms Normal sinus rhythm with sinus arrhythmia Normal ECG Confirmed by JAVI EL, CARLOS A ([id number]), scientific editor REX WILD ([id number]) on 11/06/2017 8:59:24 PM Referred By: Confirmed By:CARLOS A CALDWELL MD
== END 2017-11-04 13:13 | disposition home or self-care (01) | DRG 65 ==
LOC: ERS 13:32 → OBSVTOIN 15:39 → 2SE 15:39
PROVIDERS: ADMIT Family Medicine; ATTEND Family Medicine
DX: I63.512 Cerebral infarction due to unspecified occlusion or stenosis of left middle cerebral artery (principal); G81.91 Hemiplegia, unspecified affecting right dominant side; G40.909 Epilepsy, unspecified, not intractable, without status epilepticus; E78.5 Hyperlipidemia, unspecified; D64.9 Anemia, unspecified; D72.819 Decreased white blood cell count, unspecified; I12.9 Hypertensive chronic kidney disease with stage 1 through stage 4 chronic kidney disease, or unspecified chronic kidney disease; N18.2 Chronic kidney disease, stage 2 (mild); Z79.82 Long term (current) use of aspirin; Z86.73 Personal history of transient ischemic attack (TIA), and cerebral infarction without residual deficits
CPT/HCPCS: 36415; 70450; 70551; 71045; 72156; 80048; 80053; 80185; 80306; 80307; 81003; 82140; 82550; 82553; 83690; 83735; 84146; 84443; 84484; 85025; 93005; 96374; 96375; G8978-GP-CM; G8979-GP-CK; G8987-GO-CL; G8988-GO-CJ; G8996-GN-CJ; G8996-GN-CK; G8997-GN-CJ; J0360; J1200; J1650; J7050; Q2009

== ENCOUNTER 2017-11-24 17:22 | Emergency (ER) | payer SELFPAY ==
[2017-11-24] MEDS ORDERED: methylPREDNISolone Sod Succ/PF 125 MG/2 ML VIAL ONE (19:48)
[2017-11-24] MEDS ORDERED: Famotidine/PF 20 mg/2ml Vial ONE (19:48)
[2017-11-24] MEDS ORDERED: diphenhydrAMINE 50 MG/ML VIAL ONE (19:48)
== END 2017-11-24 21:01 | disposition home or self-care (01) ==
LOC: ERS 17:22
DX: T78.40XA Allergy, unspecified, initial encounter (principal); I10 Essential (primary) hypertension; G40.909 Epilepsy, unspecified, not intractable, without status epilepticus; E78.5 Hyperlipidemia, unspecified; Z86.73 Personal history of transient ischemic attack (TIA), and cerebral infarction without residual deficits; Z79.899 Other long term (current) drug therapy; Z79.82 Long term (current) use of aspirin
CPT/HCPCS: 96374; 96375; J1200; J2930; S0028

== ENCOUNTER 2017-11-25 17:43 | Emergency (ER) | payer SELFPAY ==
[2017-11-25] MEDS ORDERED: diphenhydrAMINE 25 MG CAP ONE (18:59)
[2017-11-25] MEDS ORDERED: predniSONE 20 MG TAB ONE (18:59)
== END 2017-11-25 20:49 | disposition home or self-care (01) ==
LOC: ERS 17:43
DX: L29.9 Pruritus, unspecified (principal); I10 Essential (primary) hypertension; E78.5 Hyperlipidemia, unspecified; G40.909 Epilepsy, unspecified, not intractable, without status epilepticus
CPT/HCPCS: 87081; 87430; 99283; J7506

== ENCOUNTER 2017-11-27 00:27 | Observation (INO) | payer SELFPAY ==
[2017-11-27 01:00] LABS: #Lymphocytes 1.6 thou/uL (1.20-3.40); #Monocytes 0.3 thou/uL (0.11-0.59); #Neutrophils 4.3 thou/uL (1.40-6.50); %Basophils 0.4 % (0.0-1.0); %Eosinophils 0.6 % (0.0-10.0); %Lymphocytes 24.8 % (21.0-51.0); %Monocytes 5.4 % (0.0-10.0); %Neutrophils 68.8 % (42.0-75.0); Hemoglobin 12.2 g/dL (14.0-18.0); Mean Corpuscular HGB CONC 34.9 g/dL (32.0-36.0); Mean Corpuscular Hemoglobin 31.7 pg (27.0-31.0); Mean Corpuscular Volume 90.8 fL (78.0-98.0); Mean Platelet Volume 7.2 fL (7.4-10.4); Platelet Count 246 thou/uL (130-400); RBC Distribution Width 13.3 % (11.5-14.5); Red Blood Cell (RBC) Count 3.83 mill/uL (4.70-6.10); White Blood Cell (WBC) Count 6.3 thou/uL (4.8-10.8)
[2017-11-27 01:06] LABS: PTT 36.2 SEC (22.9-36.1); Prothrombin Time 13.6 SEC (12.0-14.7)
[2017-11-27 01:14] LABS: ALT (SGPT) 71 U/L (8-55); AST (SGOT) 24 U/L (5-34); Albumin 4.6 g/dL (3.5-5.0); Alkaline Phosphatase 110 U/L (40-150); Anion Gap 15 mmol/L (10-20); BUN (Urea Nitrogen) 14 mg/dL (8.9-20.6); Bilirubin, Total 0.3 mg/dL (0.2-1.2); Calc. Creatinine Clearance 0 mL/min (70-130); Calcium 9.5 mg/dL (7.8-10.44); Carbon Dioxide 21 mmol/L (22-29); Chloride 110 mmol/L (98-107); Estimated GFR-MDRD Greater than 90; Globulin 3.8 g/dL (2.4-3.5); Glucose 121 mg/dL (70-105); Potassium 3.9 mmol/L (3.5-5.1); Protein, Total 8.4 g/dL (6.0-8.3); Sodium 142 mmol/L (136-145)
[2017-11-27 01:15] LABS: Acetaminophen Less than 6.0 mcg/mL (10.0-30.0); Alcohol Less than 10 mg/dL (Less than 10); Lipase 26 U/L (8-78); Magnesium 2.3 mg/dL (1.6-2.6); Salicylate Less than 8.0 mg/dL (15.0-30.0)
[2017-11-27 01:17] LABS: CKMB 0.3 ng/mL (0-6.6); Troponin I Less than 0.010 ng/mL (< 0.028)
[2017-11-27 02:51] LABS: Bilirubin Negative (Negative); Blood, Urine Negative (Negative); Clarity CLEAR (Clear); Glucose, Urine (Dipstick) Negative (Negative); Leukocyte Negative (Negative); Nitrite Negative (Negative); Protein, Urine (Dipstick) Trace mg/dL (Neg-Trace); Specific Gravity, Urine 1.032 (1.002-1.036); Urobilinogen 0.2 mg/dL (0.2-1.0); pH, Urine 5.5 (5.0-9.0)
[2017-11-27 03:21] LABS: Amphetamine Not Detected (NotDetected); Barbiturates Screen Detected (NotDetected); Benzodiazepine Screen Not Detected (NotDetected); Cocaine Metabolite Screen Not Detected (NotDetected); Medtox Control Line Valid? VALID (VALID); Medtox Reader # READER 4; Methadone Not Detected (NotDetected); Methamphetamine Not Detected (NotDetected); Opiate Screen Not Detected (NotDetected); Oxycodone Screen Not Detected (NotDetected); Phencyclidine (PCP) Not Detected (NotDetected); THC/Cannabinoid Screen Not Detected (NotDetected); Tricyclic Screen Not Detected (NotDetected)
[2017-11-27 04:22] LABS: Troponin I Less than 0.010 ng/mL (< 0.028)
[2017-11-27 05:22] VITALS: BMI 29.5
[2017-11-27 07:47] LABS: Troponin I Less than 0.010 ng/mL (< 0.028)
[2017-11-27] MEDS ORDERED: hydrALAZINE 20 MG/ML VIAL SLOW IVP PRN (08:21)
--- NOTE | 2017-11-27 08:55 | CT ---
PRELIMINARY REPORT/[facility]/EMERGENTY AFTER-HOURS PROCEDURE CT HEAD WO ADDENDUM: CT head without contrast 10/31/2017 report without images is now submitted and reviewed. Base d on the old report, there does not appear to be significant change. Initial Report created on 11/27/2017 1:18 AM Central Time ([place] & [place]) CT Head Without Intravenous Contrast EXAM DATE/TIME: 11/27/2017 12:46 AM CLINICAL HISTORY: 42 years old, male; Weakness, extremity; Right; Left arm weakness and pain for approx. 1 hr. TECHNIQUE: Axial computed tomography images of the head/brain without intravenous contrast. COMPARISON: No relevant prior studies available. FINDINGS: Brain: No midline shift. Speckled or mottled density in left lentiform nucleus measuring about 2.0 x 1.5 cm in size (axial ser ies 2, image 16) subjectively most likely represents calcifications, however actual JANIE density measu rement range from 40-78 HU and may therefore resemble blood. Small calcifications also noted in superior left frontal lobe near vertex. Moderate-sized brain parenchymal cystic defect in superior left frontal lobe located deep to old cran iotomy may represent tumor resection, old infarct, or hemorrhage. Mild, hypodense, periventricular, cerebral white matter changes. Few, scattered, old-appearing lacunar infarcts including at bilateral internal capsules right anterio r philip, and right caudate head. Ventricles: Mild enlargement of left lateral ventricle's frontal horn likely due to hydrocephalus ex vacuo or adj acent cerebral volume loss. CSF spaces overall mildly enlarged and likely represents age-appropriate, cerebral volume loss. Bones/joints: Old, large, left frontal craniotomy. Sinuses: Partially-imaged bilateral maxillary sinuses show mild mucosal thickening. Mastoid air cells: Unremarkable. Soft tissues: Unremarkable. IMPRESSION: No old exams available for comparison. If this becomes available, then an addendum will b e made. 1. No CT evidence of acute ischemic infarct. ASPECTS Score is 10. 2. Speckled or mottled density in left lentiform nucleus measuring about 2.0 x 1.5 cm in size subject ively most likely represents calcifications of indeterminate etiology, however actual JANIE density elizabeth surement ranges from 40-78 HU and may therefore less likely resemble hemorrhage. 3. Moderate-sized brain parenchymal cystic defect in superior left frontal lobe located deep to old c raniotomy may represent tumor resection, old infarct, or hemorrhage. 4. Old, large, left frontal craniotomy. MR head may be helpful if there remains strong clinical suspi cion for recent ischemic infarct (and there are no contraindications). This Report Contains Findings That May Be Critical To Patient Care. The findings were verbally commun icated via telephone conference with NILAY Drummond at 2:03 AM EDT on 11/27/2017. The findings were ac knowledged and understood. Thank you for allowing us to participate in the care of your patient. Dictated and Authenticated by: Billy Zhu MD 11/27/2017 1:18 AM Central Time ([place] & [place]) FINAL REPORT NONCONTRAST CT OF BRAIN: Date: 11/27/17 INDICATION: Stroke alert. COMPARISON: Prior exam dated 10/31/17 and MRI of brain dated 08/25/17. IMPRESSION: I agree with the preliminary report provided by [facility]. No acute intracranial abnormality is evident. T he calcifications involving the left lentiform nucleus and left frontal lobe are stable and likely re lated to chronic malacic changes. There is encephalomalacia involving the left frontal lobe. There is moderate chronic small vessel which matter ischemic changes similar appearing. Remote lacunar infarc tion involving right basal ganglia is stable. POS: [facility]
--- NOTE | 2017-11-27 09:44 | RAD ---
AP VIEW CHEST: Date: 11/27/17 INDICATION: Chest pain with left arm weakness. IMPRESSION: No acute cardiopulmonary abnormality. Examination is not appreciably changed from the comparison date d 10/31/17. POS: [facility]
--- NOTE | 2017-11-27 09:48 | HP ---
DATE OF SERVICE: 11/27/2017 PRIMARY CARE PHYSICIAN: [facility]. CHIEF COMPLAINT: Left-sided pain. HISTORY OF PRESENT ILLNESS: This is a 42-year-old male with history of stroke in 07/2017 and again in early 10/2017, seizure disorder, brain tumor with resection, hypertension, dyslipidemia, who presents to the emergency room complaining of left-sided pain. All the history is obtained from the patient's who reports that he woke her up around 11:00 p.m. last night and wanted to go to the emergency room. This is unusual for the patient to request ER evaluation. She states that he reported left-sided pain, she was unable to tell if there was any difference. She does note that after discharge from the hospital that he fell approximately 4 times, and noted that he fell about a week ago and despite the use of a walker, remained unstable. Since his stroke in July, he has had right leg dragging which had improved some working with therapy. The patient was in the emergency room on Wednesday and nights (2 and 3 nights ago) complaining of itching all over, was treated with a 5-day course of prednisone, and started on Claritin. His has not noticed any rash, but did state that his face looked different and swollen, and she has been using some hydrocortisone for his skin. She has not noted any fevers, chills, nausea , vomiting, change in appetite or change in voiding. He does have some right- sided shaking, which she states is not too bad and this is since his first stroke. No history is obtained from the patient, he denies any pain currently. In the emergency room, the patient evaluated with a CT scan, no acute changes, received aspirin 162 mg and Hospitalist called for admission. ALLERGIES TO MEDICATIONS: IODINE. CURRENT MEDICATIONS: Reconciled with the discharge summary, 1. Dilantin 200 mg b.i.d. 2. Aspirin 81 mg daily. 3. Atorvastatin 20 mg daily. 4. Prednisone 50 mg for a 5-day course. 5. Plavix 75 mg b.i.d. 6. Coreg 6.25 mg b.i.d. 7. Keppra 500 mg b.i.d. 8. Amlodipine 10 mg daily. 9. Claritin 10 mg once a day. PAST MEDICAL HISTORY: 1. Ischemic stroke x2, the most recent was early October of this year with left MCA ischemic stroke. 2. Lower extremity weakness with history of stroke in 07/2017. 3. Seizure disorder. 4. Hypertension. 5. Benign brain tumor resection in 1994. PAST SURGICAL HISTORY: Benign brain tumor resection. SOCIAL HISTORY: The patient lives with his . No reported alcohol or drugs. FAMILY HISTORY: Negative for stroke or seizure. REVIEW OF SYSTEMS: Not obtainable from the patient. PHYSICAL EXAMINATION: VITAL SIGNS: Blood pressure is 159/102, temperature 98.4, pulse 91, respirations 18, saturations 95% on room air. GENERAL: The patient will open his eyes to command. He is not in apparent distress. HEENT: Pupils are equal and round. Extraocular movements intact. Oral mucosa is pink and moist. NECK: Supple, nontender. LYMPHATICS: No palpable cervical or supraclavicular lymphadenopathy. LUNGS: Clear to auscultation bilateral. No audible wheezing, rhonchi or rales. HEART: Normal S1, S2, regular rate and rhythm, no audible murmurs. ABDOMEN: Soft with present bowel sounds. Nontender, nondistended. EXTREMITIES: No pitting edema, clubbing or cyanosis. SKIN: No visible rashes. 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 Of his lower extremities, he is able to move his left toes, no spontaneous movement on his right leg. Reflexes, he has non- extinguishing clonus the right, and about 3-4 beats of clonus on the left. LABORATORY DATA: Personally reviewed. 1. CBC: 6.3, 12.2, 34.8, 246. 2. INR 1.0. 3. CMP: 142, 3.9, 110, 21, 14, 1.05, 121. 4. Calcium 9.5, magnesium 2.3. 5. Total bilirubin 0.3, AST 24, ALT 71, alkaline phosphatase 110, total protein 8.4, albumin 4.6. Urinalysis negative. 5. Tox screen negative for alcohol, Tylenol, salicylate, otherwise only positive for barbiturates. IMAGIN. EKG personally reviewed, sinus rhythm, normal axis, no ST changes, normal intervals. 2. Chest x-ray personally reviewed showed negative by my read, report is pending. 3. CT of the brain without contrast, no acute findings per the [facility] report. IMPRESSION: 1. New onset left-sided pain and by my exam, weakness in a patient with history of 2 strokes who is currently on dual antiplatelet therapy. 2. Seizure disorder, on dual antiepileptic therapy. 3. Hypertension, unknown control. 4. Itching with recent initiation of prednisone and Claritin. 5. Known right lower extremity weakness secondary to stroke. 6. Reported left shoulder pain with history of falls since his last discharge on 11/04/2017. 7. History of a benign brain tumor resection. PLAN: 1. Observation status in the hospital. 2. Following the stroke protocol with MRI, Stroke team consult, Neurology consult. 3. We will change him over to full dose of aspirin for now, anticipate he will need to be changed back to aspirin and Plavix combination unless Neurology directs otherwise. We will increase his statin, hold his amlodipine for permissive hypertension. We will reduce the Coreg to avoid precipitating tachycardia. 4. We will hold the prednisone and Claritin. The patient is not currently itching and I am uncertain if this is contributing to the current presentation. 5. X-ray of left shoulder given the report of falls and the report of pain. 6. Deep venous thrombosis prophylaxis with scd's. 7. Gastrointestinal prophylaxis not indicated. 8. Code status is full and surrogate decision maker is the patient's . I reviewed the plan of care with the patient's . No questions or further needs at end of evaluation. The patient is at high risk given age, comorbidities, and current presentation. MILLERD
[2017-11-27] MEDS: levETIRAcetam 500 MG TAB PO SCH ×2 (11:07→22:16)
[2017-11-27] MEDS: Aspirin 325 MG TAB PO SCH (11:07)
--- NOTE | 2017-11-27 13:47 | RAD ---
LEFT SHOULDER 3 VIEWS: Date: 11/27/17 HISTORY: Left shoulder pain. FINDINGS: AC and glenohumeral joints are normal in appearance. There are no signs of fracture or other findings . IMPRESSION: Unremarkable left shoulder. POS: [facility]
[2017-11-27] MEDS ORDERED: Loratadine 10 MG TAB PO SCH (15:00)
--- NOTE | 2017-11-27 15:09 | CON ---
DATE OF CONSULTATION: 11/27/2017 CHIEF COMPLAINT: Weakness of the left upper extremity. HISTORY OF PRESENT ILLNESS: The patient's history is mostly given by . The patient was quiet throughout the interview. states the patient has had left upper extremity weakness with slurred speech. 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 He also has not recovered yet from the right arm weakness that he has had for a while. The patient is seeing Dr. Lira on an outpatient basis for his seizures as well as weakness. He had a stroke in 07/2017 and beginning of 10/2017. He has seizure disorder, brain tumor resection from 1994, hypertension and hyperlipidemia. He woke up last night and wanted to go to the ER for left arm weakness and they stated to Dr. Roberts that the patient had left-sided pain and he also fell per in the past few weeks even with his walker. He has had difficulty with right-sided weakness since his prior stroke and they are also having significant financial issues and they are waiting on social security disability to approve his disability and they now have a horse doctor who is working with them. The patient also had itching and was treated with a 5-day course of prednisone and Claritin. The patient had facial itching and possible facial swelling. PREVIOUS MEDICAL HISTORY: Stroke in beginning of 10/2017 and he had right lower extremity weakness at that time and was dragging the right leg. His MRI on 11/02/2017 shows foci of recent infarct involving left dong radiata, left centrum semiovale superimposed on chronic ischemic disease and multifocal infarctions and he has moderate left frontal encephalomalacia from a craniotomy in the past. Hypertension, malignancy of the brain with benign tumor removal in 1994, chemotherapy and radiation in the past with last treatment before 1999 and epilepsy with seizures, mainly described as alteration in mental status along with slurred speech and he is under the care of Dr. Lira for the same, hyperlipidemia and right-sided weakness with CVA. PAST SURGICAL HISTORY: Brain tumor removal 02/1995. SOCIAL HISTORY: He does not smoke or drink. He lives with his family. There are also job difficulties due to his seizures. FAMILY HISTORY: Positive for stroke, HTN. ALLERGIES: He is allergic to IODINE. MEDICATIONS: He is on Dilantin 200 mg per day, amlodipine 10 mg per day, aspirin 325 mg per day, atorvastatin 20 mg per day. REVIEW OF SYSTEMS: Unable to obtain from the patient. He has limited speech. He does not talk much at all. LABORATORY DATA: White count 6.3, hemoglobin 12.2, hematocrit 34.8, platelets 246,000. PT 13.6, INR 1.2, PTT 36.2. Sodium 142, potassium 3.9, chloride 110, carbon dioxide 21, BUN 14, creatinine 1.05. Urinalysis is negative. Toxicology , barbiturates are positive in his urine. PHYSICAL EXAMINATION: VITAL SIGNS: Blood pressure 152/107, temperature 98.9, pulse is 81, O2 sats 94. GENERAL APPEARANCE: Well-built, well-nourished man, who was lying in bed, does not talk much. CHEST: Clear vesicular breathing. CARDIOVASCULAR: S1, S2 heard. No murmurs. Carotids are clear. ABDOMEN: Soft, nontender. No organomegaly noted. NEUROLOGICAL EXAMINATION HIGHER INTELLECTUAL FUNCTIONS: Limited communications. Not oriented to time, oriented to person, says he is from [place], but cannot name the state. Can follow simple one step commands. CRANIAL NERVES: Normal extra ocular movements, normal visual wong by confrontation method, mild right facial droop, normal sensation of face bilaterally, normal hearing to finger rub bilaterally, normal elevation of palate, tongue midline no atrophy noted. MOTOR: Bulk normal. Tone is normal. Strength is 4/5 in the upper extremities bilaterally in deltoid, biceps, triceps, wrist extension/flexion, finger extension and flexion. In the right lower extremity, strength was 3/5 throughout. In the left lower extremity, strength was 3/5 in muscle groups tested iliopsoas, hamstrings, quadriceps, ankle dorsiflexion and plantar flexion bilaterally. Deep tendon reflexes were absent throughout in upper and lower extremities. SENSORY: Normal touch, pinprick, proprioception was difficult to evaluate, but he seems to have preserved proprioception bilaterally. Vibration was normal. CEREBELLAR: Normal [id number]. [id number] was difficult to test due to weakness. IMPRESSION: The patient with acute left arm weakness. It is unclear how many strokes he has had in the past. He seems to have bilateral strokes and recent stroke even as early as 11/01/2017. His examination shows cognitive impairment , limited ability to speak. He also has left arm weakness plus right sided weakness as well. He has chronic ischemic events, and it is unclear why at such a young age he has multiple infarcts, he needs work up for hypercoagulable state to be sure we can prevent future events. At this time, we may have to consider anticoagulation in addition to antiplatelet agents. RECOMMENDATIONS: Please consult Hematology to see if there are any underlying factors for this young person to have so many ischemic event. He has had numerous investigations in the past for strokes. He is under the care of neurologist, Dr. Lira for his seizures. We can continue the same seizure medications. I will request an MRI of the brain and we will follow up on the report. I will follow up the patient with you. DANIEL
[2017-11-27] MEDS: Carvedilol 3.125 MG TAB PO SCH (16:51)
--- NOTE | 2017-11-27 17:10 | MRI ---
MRI OF THE BRAIN WITHOUT CONTRAST: 11/27/17 INDICATION: History of stroke and brain tumor. COMPARISON: Prior MRI of the brain dated 11/02/17. FINDINGS: No area of new restricted diffusion is evident to suggest acute ischemia. There are bilateral lacunar infarcts as well as moderate left sided left frontal lobe encephalomalacia again noted. Craniotomy c hanges overlying the left frontal region is stable. Hemosiderin staining of the left frontal region i s stable. Moderate chronic small vessel white matter ischemic change is similar appearing. Septum pel lucidum and third ventricle are midline. There are appropriate flow voids within the major intracrani al arteries. IMPRESSION: No MR evidence to suggest acute ischemia. POS: [facility]
[2017-11-27] MEDS ORDERED: Atorvastatin Calcium 40 MG TAB PO SCH (21:00)
[2017-11-27] MEDS: Acetaminophen 325 MG TAB PO PRN (22:16)
[2017-11-28 04:37] LABS: #Basophils 0.1 thou/uL (0.0-0.2); #Eosinphils 0.1 thou/uL (0.0-0.7); #Lymphocytes 1.8 thou/uL (1.20-3.40); #Monocytes 0.2 thou/uL (0.11-0.59); #Neutrophils 1.8 thou/uL (1.40-6.50); %Basophils 1.3 % (0.0-1.0); %Eosinophils 2.8 % (0.0-10.0); %Lymphocytes 45.5 % (21.0-51.0); %Monocytes 5.5 % (0.0-10.0); %Neutrophils 44.8 % (42.0-75.0); Hemoglobin 11.4 g/dL (14.0-18.0); Mean Corpuscular HGB CONC 35.3 g/dL (32.0-36.0); Mean Corpuscular Hemoglobin 31.8 pg (27.0-31.0); Mean Corpuscular Volume 90.2 fL (78.0-98.0); Mean Platelet Volume 7.2 fL (7.4-10.4); Platelet Count 232 thou/uL (130-400); RBC Distribution Width 13.1 % (11.5-14.5); Red Blood Cell (RBC) Count 3.58 mill/uL (4.70-6.10)
[2017-11-28 04:41] LABS: Anion Gap 15 mmol/L (10-20); BUN (Urea Nitrogen) 11 mg/dL (8.9-20.6); Calc. Creatinine Clearance 130 mL/min (70-130); Calcium 8.9 mg/dL (7.8-10.44); Carbon Dioxide 21 mmol/L (22-29); Chloride 108 mmol/L (98-107); Estimated GFR-MDRD Greater than 90; Glucose 86 mg/dL (70-105); Potassium 3.6 mmol/L (3.5-5.1); Sodium 140 mmol/L (136-145)
[2017-11-28] MEDS: levETIRAcetam 500 MG TAB PO SCH (08:37)
[2017-11-28] MEDS: Carvedilol 3.125 MG TAB PO SCH (08:37)
[2017-11-28] MEDS: Aspirin 325 MG TAB PO SCH (08:37)
[2017-11-28] MEDS ORDERED: Enoxaparin Sodium 40 MG/0.4 ML SYRINGE SC SCH ×2 (09:00→21:00)
--- NOTE | 2017-11-28 10:43 | PDOC.PN ---
- Subjective Encounter Start Date: 11/28/17 (f/u weakness) Encounter Start Time: 10:42 Subjective: Pt c/o pain in left shoulder. Notes his right leg is weaker. -: denies any new problems or sx. - Objective Resuscitation Status: Resuscitation Status FULL:Full Resuscitation Vital Signs & Weight: Vital Signs (12 hours) Temp Pulse Resp BP Pulse Ox 11/28/17 08:27 97.9 F 85 16 11/28/17 07:41 97.9 F 85 16 154/108 H 93 L 11/28/17 03:35 98.5 F 69 16 150/106 H 95 11/28/17 00:00 98.6 F 72 14 144/100 H 94 L Weight Admit Weight 200 lb Weight 198 lb 9.6 oz I&O: 11/27/17 11/28/17 11/29/17 06:59 06:59 06:59 Intake Total 360 100 Balance 360 100 Result Diagrams: 11/28/17 03:41 11/28/17 03:41 EKG Reviewed by me: Yes (sinus 80's, occ pvc's) Phys Exam - Physical Examination Constitutional: NAD Respiratory: no wheezing, no rales, no rhonchi, clear to auscultation bilateral Cardiovascular: RRR, no significant murmur Gastrointestinal: soft, non-tender, no distention, positive bowel sounds Musculoskeletal: no edema, pulses present Decreased movement of lUE secondary to shoulder pain Deviation from normal: more alert today Skin: no rash Dx/Plan - Plan * Pt is more alert today, more movement. Affect is blunted - uncertain if this is new or normal. * * appreciate Neuro consult - need determination on secondary stroke prevention. Pt is currently only on full dose aspirin * Resume amlodipine and usual dose of carvedilol today * Consult Hematology for assistance with hypercoagulable d/o and assistance with determining anticoagulation vs antiplatelet therapy * Continue therapy * * Constipation - will order stool softener scheduled and prn MOM * * shoulder pain -neg xray yesterday. Tx pain with tylenol and lidocaine patch. * * dvt prophy - will start lovenox. * gi prophy - not indicated * code status full * * reviewed plan of care with patient, no questions or further needs at end of eval
[2017-11-28] MEDS ORDERED: Amlodipine 10 MG TAB PO SCH (10:45)
[2017-11-28] MEDS ORDERED: Milk Of Magnesia 30 ML UDCUP PO PRN (10:46)
[2017-11-28] MEDS ORDERED: Lidocaine 5% Patch TD SCH (11:15)
[2017-11-28 11:50] VITALS: TEMP 98.1
[2017-11-28] MEDS: Acetaminophen 325 MG TAB PO PRN (11:53)
[2017-11-28 12:14] LABS: INR-International Normal Ratio 1.1; PTT 35.7 SEC (22.9-36.1)
[2017-11-28 12:15] LABS: D-Dimer Test 1.37 *mcg/mL (0.27-0.43)
[2017-11-28 12:20] VITALS: BP 146/90
--- NOTE | 2017-11-28 12:42 | CON ---
DATE OF CONSULTATION: 11/28/2017 HISTORY OF PRESENT ILLNESS: Mr. Rahman is a 42-year-old male with a history of CVA, recurrent both i n 07/2017 and an early 10/2017. He has been maintained on aspirin 81 mg as well as Plavix b.i.d. sin ce the stroke in October. He had a full workup in July including an echocardiogram looking for foramen ovale and other signs that he might have had an embolic stroke, but it appears that this was an isch emic stroke. He does have a history of brain tumor resection in 1994. He has had seizures since carlos t time, although his states the seizures have not been increased recently. He presents on this admission with 24-48 hours of left upper extremity pain and shoulder pain. He states it has not been very weak, but mostly just painful. Most of the history is taken per his . He has a problem wi th aphasia since the last stroke. His states he has always been a little bit slower to respond because of the seizures and the history of the brain tumor resection many years ago. Today, he state s his pain is better. He is not sure why his pain is better, but it seems to just be time. He jimmie nues to have right-sided weakness since the stroke a few months ago. He denies any other new complai nts besides pruritus in the last few days. His imaging on this hospitalization does not show any sig ns of cerebrovascular accident. He has had uncontrolled hypertension, particularly diastolic. He do es not have insurance and gets all of his medications through [facility]. His does insist t hat they have been compliant and have been paying for the medications out of pocket, but on admission his blood pressure was 150/106 after being in the emergency room. PAST MEDICAL HISTORY: 1. Recurrent cerebrovascular accident. 2. Hypertension. 3. Hypercholesterolemia. CURRENT MEDICATIONS: 1. Tylenol p.r.n. 2. Norvasc 10 mg p.o. q. day. 3. Aspirin 325 mg p.o. q. day. 4. Lipitor 40 mg p.o. at bedtime. 5. Coreg 6.25 mg p.o. b.i.d. 6. Colace 100 mg p.o. b.i.d. 7. Lovenox 40 mg subcu q. day. 8. Hydralazine p.r.n. 9. Keppra 500 mg p.o. b.i.d. 10. Lidocaine patch. 11. Claritin 10 mg p.o. q. day. 12. Milk of Magnesia p.r.n. 13. Dilantin 200 mg p.o. b.i.d. ALLERGIES: IODINE. SOCIAL HISTORY: His denies tobacco or alcohol use. He does appear that he used to smoke many y ears ago. His appears quite supportive, they are uninsured. FAMILY HISTORY: Positive for stroke in his mother around the age of 50. REVIEW OF SYSTEMS: Otherwise, 10-point review of systems is negative per the , the patient is no t speaking. PHYSICAL EXAMINATION: VITAL SIGNS: Current blood pressure 125/85 but last blood pressure prior to this 154/108, temperatur e 98.1, pulse 84, respirations 16, and O2 sat 95% on room air. GENERAL: He is in no acute distress, pleasant but not very communicative. HEENT: Extraocular muscles are intact. Pupils are equal and reactive to light. Sclerae are anicter ic. NECK: Supple, without lymphadenopathy. CARDIOVASCULAR: Regular rhythm. LUNGS: Clear to auscultation. ABDOMEN: Hypoactive bowel sounds. Soft, nontender, nondistended. EXTREMITIES: No edema. NEUROLOGIC: Deferred as the neurologist was just here. LABORATORY DATA: White blood cell count 4.0, hemoglobin 11.4, platelets 232. His electrolytes are n ormal with the exception of a chloride of 108, CO2 of 21. Brain MRI done this admission shows no signs of current acute ischemia. ASSESSMENT: 1. Mr. Rahman is a 42-year-old male with a history of recurrent stroke both in July and October 8. 2. Left upper extremity pain of unknown etiology. 3. Uncontrolled hypertension. 4. Hypercholesterolemia. PLAN: 1. We will send a hypercoagulable panel as this was not sent when he was here in July as far as I can tell. I do think that it would be reasonable to work him up and make sure that he does not have any signs of being hypercoagulable. However, he does have other reasons to have had a stroke including uncontrolled hypertension, hypercholesterolemia, -[place] ancestry and his mother had a strok e around the age of 50. Therefore, my suspicion is low for hypercoagulable state, but we will work t his up regardless. 2. I would recommend controlling his blood pressure more adequately. 3. I would recommend to continue on aspirin and following further recommendations per the neurologis t for his stroke management. 4. He will not need any further anticoagulation in my opinion if his hypercoagulable panel is negati ve. 5. It is okay, I think from to be sent home when he is stabilized and I can follow up the hypercoagu lable panel as an outpatient. It appears based on the history and the imaging that this is at the ve ry most a TIA and quite simply could be pain in the left upper extremity that is unrelated to neurolo gical events in the last few months. Thank you very much for this consult. We will follow with you.
--- NOTE | 2017-11-28 13:37 | PRG ---
DATE OF SERVICE: 11/28/2017 CHIEF COMPLAINT: Patient's left arm pain. INTERVAL HISTORY: Patient's stated yesterday that he had left arm weakness, but they have menti oned left arm pain to Dr. Roberts and also the dining manager who has seen him today. Patient has had n o worsening of his condition since yesterday. Reports MRI scan of the brain showed no evidence of ac josué ischemia. He has bilateral lacunar infarct as well as moderate left frontal lobe encephalomalaci a. Craniotomy changes overlying left frontal region. Hemosiderin staining of the left frontal regio n is stable. Moderate chronic small vessel white matter ischemic change is similar appearing. PHYSICAL EXAMINATION: VITAL SIGNS: Blood pressure 125/85, pulse rate is 84, temperature 98.1. GENERAL APPEARANCE: Patient is alert, awake, answers simple questions, but can follow commands. NEUROLOGIC: Cranial nerves, no facial asymmetry. Normal extraocular movements. MUSCULOSKELETAL: Motor examination; left upper extremity strength 4+/5, right upper extremity streng th is 3/5, right lower extremity strength is 3/5, left lower extremity strength is also 3+/5. IMPRESSION: Patient is a 42-year-old man with multi-infarct state plus prior brain surgery for tumor . He has seizure disorder and is being monitored by Dr. Lira. At this time there is no MRI evidence of acute stroke. However, due to his young age, we have requested Hematology consultation and jessica gallego's hypercoagulable workup has been sent and consultation by dining manager is appreciated. Since the re is no acute stroke at this time, he can be on the same antiplatelet agents for now. RECOMMENDATIONS: 1. The patient needs to follow up with Dr. Lira. 2. Patient can continue aspirin with Plavix for now. 3. He will also need follow up with a dining manager and also therapy as outpatient.
--- NOTE | 2017-11-28 14:51 | DIS ---
DATE OF ADMISSION: 11/27/2017 DATE OF DISCHARGE: 11/28/2017 DISCHARGE DISPOSITION: To home. CONSULTANTS: Dr. Stephanie Trivedi of Oncology/Hematology and Dr. Niño of Neurology. MEDICATIONS: Reconciled at discharge. CONTINUED MEDICATIONS: 1. Dilantin 200 mg b.i.d. 2. Aspirin 81 mg daily. 3. Atorvastatin 20 mg at bedtime. 4. Plavix 75 mg b.i.d. 5. Coreg 6.25 mg b.i.d. 6. Keppra 500 mg b.i.d. 7. Amlodipine 10 mg daily. 8. Claritin 10 mg daily. DISCONTINUED MEDICATIONS: Prednisone as there is no indication to continue this. FINAL DIAGNOSES: 1. New onset left shoulder pain. 2. Left-sided weakness, resolved. SECONDARY DIAGNOSES: 1. History of stroke in 07/2017 and 10/2017 with residual right lower extremity weakness. 2. Seizure disorder. 3. Essential Hypertension. 4. Pruritus. 5. History of benign brain tumor resection. 6. Anemia, mild. 7. Leukopenia, mild. HISTORY OF PRESENT ILLNESS: Mr. Rahamn is a 42-year-old male with history of stroke x2, and other medical problems as noted above who presented to the emergency room complaining of left-sided pain. All the history was obtained from the patient's . She reports the only difference in his usual care is that he was seen in the emergency room twice in the 2 preceding days for itching all over and was treated with a 5-day course of prednisone and started on Claritin. No rash was noted and no other changes. In the emergency room, the patient underwent CT scan that was negative for an acute process, he received aspirin 162 mg and Hospitalist called for admission. HOSPITAL COURSE: The patient was admitted, evaluated by PT, OT and speech, and his strength has improved. He did undergo an MRI, which was negative for an acute process. He was evaluated by Neurology with recommendation to continue the dual antiplatelet therapy for now, as well as obtain Hematology consult. Dr. Trivedi evaluated the patient today and a hypercoagulable workup was ordered. The patient will need follow up with her for these test results. If patient is predisposed to a hypercoagulable condition, consideration will be made for full anticoagulation given the occurrence of stroke twice in this young patient. For the shoulder pain, an xray was negative. We started the patient on tylenol , and recommend [id number] muscle cream or lidocaine patch to manage the pain. The patient is overall improved, was able to use a walker with physical therapy today, his mentation has improved, and he does request discharge to home. PHYSICAL EXAMINATION: On the day of discharge, please see the note on chart. COTTON FINDINGS AND TEST RESULTS: 1. CBC today 4.0, 11.4, 32.3, 232. 2. D-dimer 1.37, remaining coag panel pending. 3. Renal panel: 140, 3.6, 108, 21, 11, 0.94, 86. 4. Troponin x3 negative. 5. Homocysteine is 8.18, considered the normal range. 6. Lipase was 26. 7. LFTs: Total bilirubin 0.3, AST 24, ALT 71, alkaline phosphatase 110, total protein 8.4, albumin 4.6. 8. Urinalysis 1.032 and negative. 9. Tox screen only positive for barbiturates, negative for all other things tested including, salicylates, Tylenol and plasma alcohol. 10. Chest x-ray performed on 11/27/2017, no acute cardiopulmonary process. 11. Brain CT on 11/27/2017, no CT evidence of an acute ischemic infarct, suspect older model densities in the left lentiform nucleus, subjectively most likely represents calcifications of indeterminate etiology, moderate sized brain parenchymal cystic defect in the superior left frontal lobe located deep to old craniotomy may represent tumor resection, old infarct or hemorrhage; old large left frontal craniotomy. 12. Brain MRI performed on 11/27/2017, negative to suggest an acute ischemia. Bilateral lacunar infarcts as well as moderate left-sided frontal lobe encephalomalacia noted. Moderate chronic small vessel ischemic white matter changes are similar in appearance. 13. Shoulder x-ray was unremarkable. DIET: Heart healthy, low sodium. ACTIVITY: As tolerated. The patient is ambulating with the use of a walker, to continue therapy at home. FOLLOW UP: 1. [facility] for evaluation of health within [address] Trivedi/Hematology for test results in about [address] Qian Lira/Neurology within 7 days for evaluation of symptoms and any further recommendations. Discussed with the patient and his this hospitalization, no change to his current secondary stroke risk reduction, need for followup with Dr. Trivedi in the clinic, as well as seek care precautions. They demonstrate understanding. Total time coordinating discharge is 30 minutes. DISCHARGE DISPOSITION: Home. DANIEL
[2017-11-28] MEDS ORDERED: Carvedilol 6.25 MG TAB PO SCH (17:00)
[2017-11-28] MEDS ORDERED: Lidocaine Patch Removal TOP SCH (21:00)
[2017-11-28] MEDS ORDERED: Docusate 100 MG CAP PO SCH (21:00)
[2017-11-29] MEDS ORDERED: Lidocaine 5% Patch TD SCH (09:00)
[2017-11-29] MEDS ORDERED: Amlodipine 10 MG TAB PO SCH (09:00)
[2017-12-01 10:50] LABS: Factor VIII Test 167.3 % ACTIVE (56-157)
[2017-12-02 08:50] LABS: Protein C Activity 127 % (78-152)
[2017-12-02 14:02] LABS: Cardiolipin IgA Ab 4.3 APL-U/mL (<14 Negative); EliA APS New Method **** NEW METHOD ****
[2017-12-02 14:55] LABS: HEX PHOS LA Tube 1 60.7 SEC; HEX PHOS LA Tube 2 60.1 SEC; Hexagonal Phospholipid Neut 0.6 SEC (0-8.0)
== END 2017-11-28 15:28 | disposition home or self-care (01) ==
LOC: ERS 00:27 → 2SE 03:20
PROVIDERS: ADMIT Hospitalist; ATTEND Hospitalist
DX: M25.512 Pain in left shoulder (principal); R29.898 Other symptoms and signs involving the musculoskeletal system; G40.909 Epilepsy, unspecified, not intractable, without status epilepticus; L29.9 Pruritus, unspecified; D64.9 Anemia, unspecified; D72.819 Decreased white blood cell count, unspecified; I10 Essential (primary) hypertension; E78.00 Pure hypercholesterolemia, unspecified; Z86.73 Personal history of transient ischemic attack (TIA), and cerebral infarction without residual deficits; Z79.02 Long term (current) use of antithrombotics/antiplatelets; Z79.82 Long term (current) use of aspirin; Z79.899 Other long term (current) drug therapy
CPT/HCPCS: 36415; 70450; 70551; 71045; 80048; 80053; 80306; 80307; 81003; 81240; 81241; 82553; 83090; 83690; 83735; 84484; 85025; 85240; 85300; 85303; 85305; 85307; 85379; 85598; 85610; 85730; 86147; 93005; G0378; G8978-GP-CK; G8979-GP-CJ; G8987-GO-CL; G8988-GO-CJ; G9162-GN-CK; G9163-GN-CJ

== ENCOUNTER 2018-01-27 08:13 | Emergency (ER) | payer SELFPAY ==
[2018-01-27] MEDS ORDERED: Morphine 4 MG/ML VIAL ONE (09:45)
[2018-01-27] MEDS ORDERED: Ondansetron PF 4 MG/2 ML Vial ONE (09:45)
[2018-01-27 10:09] LABS: #Eosinphils 0.2 thou/uL (0.0-0.7); #Lymphocytes 1.5 thou/uL (1.20-3.40); #Monocytes 0.3 thou/uL (0.11-0.59); #Neutrophils 2.8 thou/uL (1.40-6.50); %Eosinophils 4.1 % (0.0-10.0); %Lymphocytes 31.7 % (21.0-51.0); %Neutrophils 57.2 % (42.0-75.0); Hemoglobin 13.6 g/dL (14.0-18.0); Mean Corpuscular HGB CONC 34.3 g/dL (32.0-36.0); Mean Corpuscular Hemoglobin 30.3 pg (27.0-31.0); Mean Corpuscular Volume 88.3 fL (78.0-98.0); Mean Platelet Volume 7.1 fL (7.4-10.4); Platelet Count 255 thou/uL (130-400); RBC Distribution Width 12.5 % (11.5-14.5); Red Blood Cell (RBC) Count 4.47 mill/uL (4.70-6.10); White Blood Cell (WBC) Count 4.8 thou/uL (4.8-10.8)
--- NOTE | 2018-01-27 10:19 | RAD ---
RIGHT HAND 3 VIEWS: Date: 01/27/18 HISTORY: Right hand pain and swelling. FINDINGS/IMPRESSION: Soft tissue swelling is present. No acute fracture or dislocation is identified. There is soft tissue nonspecific periarticular calcification adjacent to the third metacarpophalangeal joint. POS: [facility]
[2018-01-27 10:32] LABS: ALT (SGPT) 46 U/L (8-55); AST (SGOT) 20 U/L (5-34); Albumin 4.4 g/dL (3.5-5.0); Alkaline Phosphatase 97 U/L (40-150); Anion Gap 14 mmol/L (10-20); BUN (Urea Nitrogen) 11 mg/dL (8.9-20.6); Bilirubin, Total 0.2 mg/dL (0.2-1.2); Calc. Creatinine Clearance 0 mL/min (70-130); Calcium 9.7 mg/dL (7.8-10.44); Carbon Dioxide 23 mmol/L (22-29); Chloride 106 mmol/L (98-107); Estimated GFR-MDRD Greater than 90; Globulin 3.8 g/dL (2.4-3.5); Glucose 104 mg/dL (70-105); Potassium 3.9 mmol/L (3.5-5.1); Protein, Total 8.2 g/dL (6.0-8.3); Sodium 139 mmol/L (136-145)
== END 2018-01-27 11:21 | disposition home or self-care (01) ==
LOC: ERS 08:13
DX: M79.641 Pain in right hand (principal); I10 Essential (primary) hypertension; G40.909 Epilepsy, unspecified, not intractable, without status epilepticus; E78.5 Hyperlipidemia, unspecified; Z86.73 Personal history of transient ischemic attack (TIA), and cerebral infarction without residual deficits; Z79.899 Other long term (current) drug therapy; Z79.82 Long term (current) use of aspirin
CPT/HCPCS: 36415; 80053; 85025; 96374; 96375; J2270; J2405

== ENCOUNTER 2018-03-15 01:07 | Emergency (ER) | payer OTHER, SELFPAY ==
[2018-03-15] MEDS ORDERED: Acetaminophen 500 MG TAB ONE ×2 (01:47→01:56)
[2018-03-15 02:00] LABS: Hemoglobin 12.6 g/dL (14.0-18.0); Mean Corpuscular HGB CONC 35.5 g/dL (32.0-36.0); Mean Corpuscular Hemoglobin 31.3 pg (27.0-31.0); Mean Corpuscular Volume 88.4 fL (78.0-98.0); Platelet Count 235 thou/uL (130-400); RBC Distribution Width 12.7 % (11.5-14.5); Red Blood Cell (RBC) Count 4.03 mill/uL (4.70-6.10); White Blood Cell (WBC) Count 3.7 thou/uL (4.8-10.8)
[2018-03-15 02:13] LABS: ALT (SGPT) 77 U/L (8-55); AST (SGOT) 34 U/L (5-34); Alkaline Phosphatase 85 U/L (40-150); Anion Gap 16 mmol/L (10-20); BUN (Urea Nitrogen) 14 mg/dL (8.9-20.6); Bilirubin, Total Less than 0.2 mg/dL (0.2-1.2); Calc. Creatinine Clearance 0 mL/min (70-130); Calcium 9.3 mg/dL (7.8-10.44); Carbon Dioxide 25 mmol/L (22-29); Chloride 103 mmol/L (98-107); Estimated GFR-MDRD 82; Globulin 3.8 g/dL (2.4-3.5); Glucose 98 mg/dL (70-105); Potassium 3.5 mmol/L (3.5-5.1); Protein, Total 7.8 g/dL (6.0-8.3); Sodium 140 mmol/L (136-145)
[2018-03-15 02:21] LABS: Band 1 % (5-11); Eosinophils 3 % (0-10); Lymphocytes 55 % (21-51); MDiff Complete? YES; Monocytes 3 % (0-10); Neutrophil 38 % (42-75); PLT Morphology Comment Appears Adequate
== END 2018-03-15 03:16 | disposition home or self-care (01) ==
LOC: ERS 01:07
DX: G40.909 Epilepsy, unspecified, not intractable, without status epilepticus (principal); I10 Essential (primary) hypertension; E78.5 Hyperlipidemia, unspecified; Z86.73 Personal history of transient ischemic attack (TIA), and cerebral infarction without residual deficits; Z79.899 Other long term (current) drug therapy; Z79.82 Long term (current) use of aspirin
CPT/HCPCS: 36415; 80053; 80185; 85025; 93005; 96361; 96365; J1953

== ENCOUNTER 2018-04-23 19:10 | Emergency (ER) | payer OTHER, MEDICAID ==
--- NOTE | 2018-04-23 20:21 | CT ---
CT HEAD NONCONTRAST: 04/23/18 HISTORY: Altered mental status. COMPARISON: 11/27/17. FINDINGS: Extensive postoperative changes of the left calvarium and left frontal lobe are again demonstrated wi th dystrophic calcifications that are similar in appearance to the prior exam. Mild distention of the ventricular system is stable. No mass effect or shift or midline structures. Old lacunar infarct right basal ganglia. IMPRESSION: Chronic type findings are stable. No acute intracranial abnormalities are demonstrated. POS: [facility]ON
[2018-04-23 20:29] LABS: #Eosinphils 0.1 thou/uL (0.0-0.7); #Lymphocytes 1.7 thou/uL (1.20-3.40); #Monocytes 0.3 thou/uL (0.11-0.59); #Neutrophils 1.4 thou/uL (1.40-6.50); %Basophils 1.1 % (0.0-1.0); %Eosinophils 3.5 % (0.0-10.0); %Lymphocytes 48.1 % (21.0-51.0); %Monocytes 7.4 % (0.0-10.0); Hemoglobin 13.2 g/dL (14.0-18.0); Mean Corpuscular HGB CONC 32.7 g/dL (32.0-36.0); Mean Corpuscular Hemoglobin 29.7 pg (27.0-31.0); Mean Corpuscular Volume 90.7 fL (78.0-98.0); Mean Platelet Volume 7.1 fL (7.4-10.4); Platelet Count 264 thou/uL (130-400); RBC Distribution Width 12.8 % (11.5-14.5); Red Blood Cell (RBC) Count 4.46 mill/uL (4.70-6.10); White Blood Cell (WBC) Count 3.6 thou/uL (4.8-10.8)
[2018-04-23 20:58] LABS: ALT (SGPT) 86 U/L (8-55); AST (SGOT) 53 U/L (5-34); Albumin 4.2 g/dL (3.5-5.0); Alkaline Phosphatase 91 U/L (40-150); Anion Gap 14 mmol/L (10-20); BUN (Urea Nitrogen) 16 mg/dL (8.9-20.6); Bilirubin, Total 0.2 mg/dL (0.2-1.2); Calc. Creatinine Clearance 0 mL/min (70-130); Calcium 9.6 mg/dL (7.8-10.44); Carbon Dioxide 26 mmol/L (22-29); Chloride 103 mmol/L (98-107); Estimated GFR-MDRD 78; Glucose 88 mg/dL (70-105); Protein, Total 8.2 g/dL (6.0-8.3); Sodium 139 mmol/L (136-145)
== END 2018-04-23 21:40 | disposition home or self-care (01) ==
LOC: ERS 19:10
DX: R53.1 Weakness (principal); G40.909 Epilepsy, unspecified, not intractable, without status epilepticus; I10 Essential (primary) hypertension; Z86.73 Personal history of transient ischemic attack (TIA), and cerebral infarction without residual deficits; Z79.82 Long term (current) use of aspirin; Z79.899 Other long term (current) drug therapy
CPT/HCPCS: 36415; 70450; 80053; 85025; 93005; 96360

== ENCOUNTER 2018-04-26 09:20 | Emergency (ER) | payer OTHER, MEDICAID ==
--- NOTE | 2018-04-26 10:17 | CT ---
BRAIN CT WITHOUT IV CONTRAST: Date: 04/26/18 HISTORY: Level II stroke alert, cannot bear weight on right leg; history of stroke several months ago, history of brain tumor. COMPARISON: 04/23/18. 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 Th ere are scattered areas of intraparenchymal calcific change, possibly from prior hemorrhage or prior surgery, particularly in the left basal ganglia region, stable. There are some right-sided lacunar in farct changes. There is no focal mass or midline shift. No evidence for intra or extra-axial hemorrha ge. IMPRESSION: Extensive bilateral postoperative changes, stable from 04/23/18. No focal mass or midline shift. No a cute hemorrhage. Findings were discussed with Dr. Dong at approximately 0944 hours. CODE CR. POS: IN[facility]ENC[facility]
[2018-04-26 10:54] LABS: #Eosinphils 0.1 thou/uL (0.0-0.7); #Lymphocytes 1.6 thou/uL (1.20-3.40); #Monocytes 0.3 thou/uL (0.11-0.59); #Neutrophils 1.6 thou/uL (1.40-6.50); %Basophils 1.3 % (0.0-1.0); %Eosinophils 3.3 % (0.0-10.0); %Lymphocytes 43.1 % (21.0-51.0); %Monocytes 8.3 % (0.0-10.0); Hemoglobin 13.3 g/dL (14.0-18.0); Mean Corpuscular HGB CONC 33.8 g/dL (32.0-36.0); Mean Corpuscular Hemoglobin 30.2 pg (27.0-31.0); Mean Corpuscular Volume 89.3 fL (78.0-98.0); Mean Platelet Volume 7.4 fL (7.4-10.4); Platelet Count 247 thou/uL (130-400); RBC Distribution Width 12.4 % (11.5-14.5); White Blood Cell (WBC) Count 3.7 thou/uL (4.8-10.8)
[2018-04-26 11:01] LABS: INR-International Normal Ratio 1.1; PTT 29.2 SEC (22.9-36.1)
[2018-04-26 11:18] LABS: ALT (SGPT) 66 U/L (8-55); AST (SGOT) 24 U/L (5-34); Albumin 4.3 g/dL (3.5-5.0); Alkaline Phosphatase 91 U/L (40-150); Anion Gap 12 mmol/L (10-20); BUN (Urea Nitrogen) 16 mg/dL (8.9-20.6); Bilirubin, Total 0.3 mg/dL (0.2-1.2); Calc. Creatinine Clearance 0 mL/min (70-130); Calcium 9.6 mg/dL (7.8-10.44); Carbon Dioxide 25 mmol/L (22-29); Chloride 105 mmol/L (98-107); Estimated GFR-MDRD Greater than 90; Globulin 3.8 g/dL (2.4-3.5); Glucose 94 mg/dL (70-105); Potassium 3.7 mmol/L (3.5-5.1); Protein, Total 8.1 g/dL (6.0-8.3); Sodium 138 mmol/L (136-145)
== END 2018-04-26 11:47 | disposition home or self-care (01) ==
LOC: ERS 09:20
DX: R53.1 Weakness (principal); I10 Essential (primary) hypertension; Z86.73 Personal history of transient ischemic attack (TIA), and cerebral infarction without residual deficits; E78.5 Hyperlipidemia, unspecified; Z79.899 Other long term (current) drug therapy; Z79.82 Long term (current) use of aspirin
CPT/HCPCS: 36416; 70450; 80053; 84484; 85025; 85610; 85730; 93005

== ENCOUNTER 2018-05-31 00:08 | Emergency (ER) | payer OTHER ==
[2018-05-31] MEDS ORDERED: Dexamethasone 10 MG/ML VIAL ONE (01:36)
--- NOTE | 2018-05-31 07:56 | RAD ---
CHEST 2 VIEWS: HISTORY: Chest pain. COMPARISON: None. FINDINGS: Lungs are clear. No pneumothorax or effusion. Cardiac silhouette and mediastinal contours are withi n normal limits. No acute osseous abnormality. IMPRESSION: No acute thoracic abnormality. POS: [facility]
== END 2018-05-31 02:14 | disposition home or self-care (01) ==
LOC: ERS 00:08
DX: J02.9 Acute pharyngitis, unspecified (principal); I10 Essential (primary) hypertension; E78.5 Hyperlipidemia, unspecified; Z86.73 Personal history of transient ischemic attack (TIA), and cerebral infarction without residual deficits; Z79.899 Other long term (current) drug therapy; Z79.82 Long term (current) use of aspirin
CPT/HCPCS: 71046; 87081; 87430; 96372; J1100

== ENCOUNTER 2018-08-29 23:36 | Emergency (ER) | payer OTHER ==
[2018-08-30 00:11] LABS: #Eosinphils 0.2 thou/uL (0.0-0.7); #Lymphocytes 2.2 thou/uL (1.20-3.40); #Monocytes 0.2 thou/uL (0.11-0.59); #Neutrophils 1.8 thou/uL (1.40-6.50); %Basophils 0.5 % (0.0-1.0); %Eosinophils 3.9 % (0.0-10.0); %Monocytes 4.7 % (0.0-10.0); Hemoglobin 12.7 g/dL (14.0-18.0); Mean Corpuscular HGB CONC 34.3 g/dL (32.0-36.0); Mean Corpuscular Hemoglobin 31.1 pg (27.0-31.0); Mean Corpuscular Volume 90.6 fL (78.0-98.0); Mean Platelet Volume 7.4 fL (7.4-10.4); Platelet Count 229 thou/uL (130-400); RBC Distribution Width 12.6 % (11.5-14.5); Red Blood Cell (RBC) Count 4.08 mill/uL (4.70-6.10); White Blood Cell (WBC) Count 4.4 thou/uL (4.8-10.8)
[2018-08-30 00:33] LABS: ALT (SGPT) 43 U/L (8-55); AST (SGOT) 21 U/L (5-34); Albumin 4.3 g/dL (3.5-5.0); Alkaline Phosphatase 71 U/L (40-150); Anion Gap 13 mmol/L (10-20); BUN (Urea Nitrogen) 15 mg/dL (8.9-20.6); Bilirubin, Total 0.2 mg/dL (0.2-1.2); Calc. Creatinine Clearance 0 mL/min (70-130); Calcium 9.2 mg/dL (7.8-10.44); Carbon Dioxide 26 mmol/L (22-29); Chloride 110 mmol/L (98-107); Estimated GFR-MDRD 82; Globulin 3.5 g/dL (2.4-3.5); Glucose 96 mg/dL (70-105); Potassium 3.6 mmol/L (3.5-5.1); Protein, Total 7.8 g/dL (6.0-8.3); Sodium 145 mmol/L (136-145)
== END 2018-08-30 01:58 | disposition home or self-care (01) ==
LOC: ERS 23:36
DX: G40.909 Epilepsy, unspecified, not intractable, without status epilepticus (principal); E78.5 Hyperlipidemia, unspecified; Z86.73 Personal history of transient ischemic attack (TIA), and cerebral infarction without residual deficits; Z79.891 Long term (current) use of opiate analgesic; Z79.899 Other long term (current) drug therapy; Z79.82 Long term (current) use of aspirin
CPT/HCPCS: 36415; 80053; 80177; 80185; 84146; 85025; 99284